=== PATIENT | male | born 1950 | race Two or more races ===

== ENCOUNTER 2024-07-18 21:36 | Inpatient (IN) | payer OTHER ==
[~2024-07-18] VITALS: Ht 177.8 cm; Wt 91.7 kg
[~2024-07-18 21:36] MED LIST: AMLO1TAB23 PO; ATOR-507 PO; CLOP75TA70 PO; DIGO0.12 PO; FURO20TA3 PO; ISOS1TAB29 PO; LISI-275 PO; METF-372 PO; METO-289 PO; PANT40TA2 PO; POTA-228 PO; TAMS0.4C39 PO; VERI5TAB PO
[2024-07-18 22:04] LABS: Basophils # (auto) 0.1 10 ^3/uL (0-0.2); Basophils % (auto) 1.4 % (0.0-2.0); Eosinophils # (auto) 0.5 10 ^3/uL (0-0.8); Eosinophils % (auto) 5.3 % (0.0-7.0); Hematocrit 35.2 % (41.0-53.0); Hemoglobin 11.9 g/dL (13.5-17.5); Lymphocytes # (auto) 2.1 10 ^3/uL (0.4-5.4); Lymphocytes % (auto) 22.4 % (10.0-50.0); Mean Corpuscular Hemoglobin 33.3 pg (28.0-32.0); Mean Corpuscular Hgb Conc. 33.7 g/dL (32.0-36.0); Mean Corpuscular Volume 98.8 fL (80.0-100.0); Monocytes # (auto) 0.3 10 ^3/uL (0-1.3); Monocytes % (auto) 3.6 % (0.0-12.0); Neutrophils # (auto) 6.5 10 ^3/uL (1.6-8.6); Neutrophils % (auto) 67.3 % (37.0-80.0); Nucleated Red Blood Cells % 0.1 %; Platelet Count (auto) 174 10^3/uL (140-450); Red Blood Cells 3.56 10^6/uL (4.5-5.90); White Blood Cell 9.6 10^3/uL (4.4-10.8)
[2024-07-18 22:20] LABS: Alanine Aminotransferase 10 U/L (7-40); Albumin 4.4 g/dL (3.2-4.8); Alkaline Phosphatase 67 U/L (46-116); Anion Gap 11 (5-15); Aspartate Aminotransferase 9 U/L (13-40); BUN/Creatinine Ratio 9.2 (10.0-20.0); Blood Urea Nitrogen 22 mg/dL (9-23); Calcium 9.1 mg/dL (8.7-10.4); Carbon Dioxide 20 mmol/L (20-31); Chloride 111 mmol/L (98-107); Glucose 233 mg/dL (74-106); Potassium 4.5 mmol/L (3.5-5.1); Sodium 142 mmol/L (136-145)
[2024-07-18 22:21] LABS: Bilirubin, Total 0.5 mg/dL (0.2-1.0); INR 1.09 (0.9-1.15); Partial Thromboplastin Time 26.8 SEC (24.5-34.5); Prothrombin Time 11.5 sec (9.3-11.8); Total Protein 7.1 g/dL (5.7-8.2)
--- NOTE | 2024-07-18 22:25 | ED.PDOC ---
History of Present Illness HPI Comments 73 y/o F, with a Hx of AICD placement, angiogram, 4xCABG, OK, and 2xPTCA, presents with c/o non-radiating, sternal chest pain, palpitations, shortness of breath, and nausea, today. Patient reports unprovoked and sudden onset of "crushing" pain in his chest in addition to remaining symptoms, while at rest, laying in his bed, this evening, at around 2100. Patients on Hx of 2-3x OK's in the past in addition to having a quadruple-bypass with 4x vessels targeted then. Patient also endorses on having a recent medical clearance following an angiogram performed by his lathmaker for "poor leg circulation." Patient reports no recent stressors, injuries, sick contact, travel, spoiled food, or substance use/exposure. Patient denies having any cough, vomiting, fever, chills, or other associated symptoms or modifiers at this time. Chief Complaint: Chest Pain Time Seen by MD: 21:45 Reviewed Notes: Nurses Notes, Medications, Allergies Information Source: Patient Mode of Arrival: Wheelchair Severity: Moderate Timing: Hours Duration: Since onset Prehospital treatment: None Past Medical History PAST MEDICAL HISTORY: OK Surgical History: CABG (Quadruple bypass), PTCA (2x) Surgical History (Other): AICD placement, angiogram Family History Family History: Unknown Social History Smoker: Non-Smoker Alcohol: Denies ETOH Use Drugs: Denies Drug Use Lives In: Home Constitutional: denies: chills, diaphoresis, fatigue, fever, malaise, sweats, weakness, others EENTM: denies: blurred vision, double vision, ear bleeding, ear discharge, ear drainage, ear pain, ear ringing, eye pain, eye redness, hearing loss, mouth pain, mouth swelling, nasal discharge, nose bleeding, nose congestion, nose pain, photophobia, tearing, throat pain, throat swelling, voice changes, others Respiratory: reports: shortness of breath; denies: cough, hemoptysis, orthopnea, SOB at rest, SOB with excertion, stridor, wheezing, others Cardiovascular: reports: chest pain, palpitations; denies: dizzy spells, diaphoresis, Dyspnea on exertion, edema, irregular heart beat, left arm pain, lightheadedness, PND, syncope, others Gastrointestinal: reports: nausea; denies: abdomen distended, abdominal pain, blood streaked bowels, constipated, diarrhea, dysphagia, difficulty swallowing, hematemesis, melena, poor appetite, poor fluid intake, rectal bleeding, rectal pain, vomiting, others Genitourinary: denies: burning, dysuria, flank pain, frequency, hematuria, incontinence, penile discharge, penile sore, pain, testicle pain, testicle swelling, urgency, others Neurological: denies: dizziness, fainting, headache, left sided numbness, left sided weakness, numbness, paresthesia, pre-existing deficit, right sided numbness, right sided weakness, seizure, speech problems, tingling, tremors, weakness, others Musculoskeletal: denies: back pain, gout, joint pain, joint swelling, muscle pain, muscle stiffness, neck pain, others Integumetry: denies: bruises, change in color, change in hair/nails, dryness, laceration, lesions, lumps, rash, wounds, others Allergic/Immunocompromised: denies: Difficulty Healing, Frequent Infections, Hives, Itching, others Hematologic/Lymphatic: denies: anemia, blood clots, easy bleeding, easy bruising, swollen glands, others Endocrine: denies: excessive hunger, excessive sweating, excessive thirst, excessive urination, flushing, intolerance to cold, intolerance to heat, unexplained weight gain, unexplained weight loss, others Psychiatric: denies: anxiety, bipolar disorder, depression, hopeless, panic disorder, schizophrenia, sleepless, suicidal, others All Other Systems: Reviewed and Negative Physical Exam General Appearance: Moderate Distress, Normal, Severe Distress HEENT: Normal ENT Inspection, Pharynx Normal, TMs Normal Neck: Full Range of Motion, Non-Tender, Normal, Normal Inspection Respiratory: Chest Non-Tender, Lungs Clear, No Accessory Muscle Use, No Respiratory Distress, Normal Breath Sounds Cardiovascular: No Edema, No JVD, No Murmur, No Gallop, Normal Peripheral Pulses, Regular Rate/Rhythm Breast Exam: Deferred Gastrointestinal: No Organomegaly, Non Tender, No Pulsatile Mass, Normal Bowel Sounds, Soft Genitalia: Deferred Pelvic: Deferred Rectal: Deferred Extremities: No calf tenderness, Normal capillary refill, Normal inspection, Normal range of motion, Non-tender, No pedal edema Musculoskeletal : Apperance: Normal Neurologic: Alert, 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 Was a procedure done?: No EKG EKG : Pulse Rate (adult): 116 [place]: Normal Cardiac Rhythm: ST Block: None Hypertrophy: None ST: Normal Differential Dx Considerations may include: OK, ACS, PE, angina, anxiety, musculoskeletal pain, costochondritis, pericarditis, gastritis, gastroenteritis, PNA, viral syndrome X-Ray, Labs, Meds, VS Vital Signs Date Time Temp Pulse Resp B/P (MAP) Pulse Ox O2 Delivery O2 Flow Rate FiO2 07/18/24 23:35 168/89 07/18/24 23:34 92 18 163/84 07/18/24 22:50 161/88 07/18/24 22:50 138 22 131/88 07/18/24 22:45 132 07/18/24 22:25 116 07/18/24 21:41 116 07/18/24 21:40 98.9 115 16 149/80 (103) 91 Lab Test 07/18/24 23:35 07/18/24 21:46 Range/Units Troponin I High Sensitivity 487 *H 56 *H </=54 ng/L White Blood Count 9.6 4.4-10.8 10^3/uL Red Blood Count 3.56 L 4.5-5.90 10^6/uL Hemoglobin 11.9 L 13.5-17.5 g/dL Hematocrit 35.2 L 41.0-53.0 % Mean Corpuscular Volume 98.8 80.0-100.0 fL Mean Corpuscular Hemoglobin 33.3 H 28.0-32.0 pg Mean Corpuscular Hemoglobin Concent 33.7 32.0-36.0 g/dL Red Cell Distribution Width 14.0 11.8-14.3 % Platelet Count 174 140-450 10^3/uL Mean Platelet Volume 8.2 6.9-10.8 fL Neutrophils (%) (Auto) 67.3 37.0-80.0 % Lymphocytes (%) (Auto) 22.4 10.0-50.0 % Monocytes (%) (Auto) 3.6 0.0-12.0 % Eosinophils (%) (Auto) 5.3 0.0-7.0 % Basophils (%) (Auto) 1.4 0.0-2.0 % Neutrophils # (Auto) 6.5 1.6-8.6 10 ^3/uL Lymphocytes # (Auto) 2.1 0.4-5.4 10 ^3/uL Monocytes # (Auto) 0.3 0-1.3 10 ^3/uL Eosinophils # (Auto) 0.5 0-0.8 10 ^3/uL Basophils # (Auto) 0.1 0-0.2 10 ^3/uL Nucleated Red Blood Cells 0.1 % Prothrombin Time 11.5 9.3-11.8 sec Prothrombin Time INR 1.09 0.9-1.15 Activated Partial Thromboplast Time 26.8 24.5-34.5 SEC Sodium Level 142 136-145 mmol/L Potassium Level 4.5 3.5-5.1 mmol/L Chloride Level 111 H 98-107 mmol/L Carbon Dioxide Level 20 20-31 mmol/L Anion Gap 11 5-15 Blood Urea Nitrogen 22 9-23 mg/dL Creatinine 2.39 H 0.700-1.30 mg/dL Glomerular Filtration Rate Calc 28 >90 mL/min BUN/Creatinine Ratio 9.2 L 10.0-20.0 Serum Glucose 233 H 74-106 mg/dL Calcium Level 9.1 8.7-10.4 mg/dL Total Bilirubin 0.5 0.2-1.0 mg/dL Aspartate Amino Transferase (AST) 9 L 13-40 U/L Alanine Aminotransferase (ALT) 10 7-40 U/L Alkaline Phosphatase 67 46-116 U/L B-Type Natriuretic Peptide 1527.20 0-100 pg/mL Total Protein 7.1 5.7-8.2 g/dL Albumin 4.4 3.2-4.8 g/dL Current Medications Medications (Trade) Dose Ordered Sig/Toby Route Start Time Stop Time Status Last Admin Morphine Sulfate 4 mg ONCE ONCE IV 07/18/24 22:30 07/18/24 22:32 DC 07/18/24 22:50 Nitroglycerin (Ntrostat Sublingual) 0.4 mg ONCE ONCE SL 07/18/24 22:30 07/18/24 22:32 DC 07/18/24 22:50 Aspirin (Ecotrin Enteric Coated Tablet) 325 mg ONCE ONCE PO 07/18/24 22:30 07/18/24 22:32 DC 07/18/24 22:50 [place] [address] Ph: [phone] DIAGNOSTIC IMAGING Diagnostic Imaging Report : [id number] Signed PATIENT: ANGELIKA MCFARLANE ACCT: [id number] UNIT: [id number] : 1950 LOC: ER ROOM / BED: / AGE / SEX: 73 / M ADM STATUS: REG ER SERVICE 39 ORDERING PHYSICIAN: ADA CELESTE MD PROCEDURE(s): CXRP - CHEST PORTABLE REASON: CP ORDER NUMBER(s): [id number], ACCESSION NUMBER(s): [id number] CHEST RADIOGRAPH Indication: CP Technique: Single frontal view of the chest was obtained Comparison: None Findings/ IMPRESSION: Left-sided cardiac device with intact leads. Mild cardiomegaly. Bilateral mid to lower lung zone interstitial and alveolar opacities concerning for pulmonary edema with superimposed infection not excluded. No pneumothorax. ATED BY: MADHAV TANNER DO DICTATED DATE/TIME: 07/18/242300 SIGNED BY: MADHAV TANNER DO SIGNED DATE/TIME: 07/18/242300 CC: First EKG and 2nd EKG shows no signs of ischemia. First troponin is 56. Second troponin is 487. Hemoglobin is 12. Creatinine is 2.4. BNP is 1527. The patient was given Lasix for CHF/pulmonary edema. He was also given morphine oxygen nitroglycerin and aspirin for high cardiac risk The patient was placed on Levaquin for possible superior for infection on the chest x-ray. The patient will be admitted to the hospitalist for further evaluation and care. Time of 1ST Reevaluation: 22:15 Reevaluation 1ST: Unchanged Patient Education/Counseling: Diagnosis, Treatment Family Education/Counseling: No Family Present Departure 1 Departure Time of Disposition: 00:13 Impression: Primary Impression: Chest pain Qualified Codes: R07.9 - Chest pain, unspecified Additional Impressions: Non-STEMI (non-ST elevated myocardial infarction) CHF (congestive heart failure) Qualified Codes: I50.9 - Heart failure, unspecified Pulmonary edema Qualified Codes: J81.0 - Acute pulmonary edema Acute kidney injury Pneumonia Qualified Codes: J18.9 - Pneumonia, unspecified organism Disposition: ADMITTED INPATIENT Admit to: Tele Condition: Guarded Critical Care Note Critical Care Time?: Yes (55 min-critical care time only) Stability Stability form required: No Heart Score Heart Score: Heart Score Response (Comments) Value History Highly Suspicious 2 EKG Normal 0 Age >65 2 Risk Factors >3 or Hx ASHD 2 Troponin 1-2 x's Normal limit 1 Total 7 I personally scribed for ADA CELESTE MD ([email or web address]) on 07/18/24 at 22:25. Electronically submitted by Abdoulaye Griffiths ([email or web address]). I personally scribed for ADA CELESTE MD ([email or web address]) on 07/18/24 at 22:29. Electronically submitted by Abdoulaye Griffiths ([email or web address]). ADA CELESTE MD Jul 18, 2024 22:25
[2024-07-18] MEDS: ASPirin-EC 325mg tab PO ONE (22:50)
[2024-07-18] MEDS: MORPHINE SULFATE 4 MG/ML SYR/VIAL IV ONE (22:50)
[2024-07-18] MEDS: NITROGLYCERIN 0.4 MG SL TAB SL ONE (22:50)
--- NOTE | 2024-07-18 23:04 | DVH ---
CHEST RADIOGRAPH Indication: CP Technique: Single frontal view of the chest was obtained Comparison: None Findings/ IMPRESSION: Left-sided cardiac device with intact leads. Mild cardiomegaly. Bilateral mid to lower lung zone in terstitial and alveolar opacities concerning for pulmonary edema with superimposed infection not excl uded. No pneumothorax.
[2024-07-19] VITALS (15 sets, daily range): BP systolic 107–152; BP diastolic 52–81; PULSE 87–118; RESP 18–24; TEMP 98–98.7; O2SAT 93–100
[2024-07-19] MEDS ORDERED: NITROGLYCERIN 0.4 MG SL TAB SL PRN (00:30)
[2024-07-19] MEDS ORDERED: MORPHINE SULFATE INJ 2 MG/ml SYRG IV PRN (00:30)
[2024-07-19] MEDS ORDERED: ONDANSETRON HCL 4 MG/2 ML VIAL IV PRN (00:30)
[2024-07-19] MEDS ORDERED: DOCUSATE SOD 100 MG CAP PO PRN (00:30)
[2024-07-19] MEDS: ATORVASTATIN 20 MG TAB PO ONE (00:43)
[2024-07-19] MEDS: levoFLOXacin 500MG 100 ML IV ONE (00:43)
[2024-07-19] MEDS: FUROSEMIDE 40 MG/4 ML VIAL IV ONE ×2 (00:43→01:44)
[2024-07-19] MEDS ORDERED: HEPARIN DRIP/D5W 100UNITS/ML 250 ML IV SCH (00:45)
[2024-07-19] MEDS: HEPARIN SODIUM (PORCINE) 5000 UNITS/ML 1ML VIAL IV ONE (01:00)
[2024-07-19] MEDS: HEPARIN DRIP/D5W 100UNITS/ML 250 ML IV SCH ×2 (01:01→10:12)
--- NOTE | 2024-07-19 01:04 | DVHHPRES ---
History of Present Illness Resident Creating Document: JOY VALADEZ RESIDENT History of Present Illness Patient is 73 years old male with past medical history of hypertension, diabetes mellitus type 2, chronic kidney disease, hyperlipidemia, CABG x4, PTCA x2 on AICD came with a complaint of chest pain. Patient reports starting having chest pain around 9:00 p.m. last night. Patient reported pain was sudden onset which him up from sleep, on the left side of the chest, stabbing in nature, radiating to the back, aggravated with movement, relieved with pain medicine like nitrogly cerin and morphine. Patient also endorsed some shortness of breath and palpitation like pounding heart associated with chest pain patient reported having nausea but no vomiting. Patient stated that he has been having off and on chest pain for last couple of weeks which easily happens when lying down but it gets better when sitting. But this time patient did not get any better. Patient also reported having leg swelling started 1 day before. Patient also reported having peripheral artery angiogram 1 month before for elevation of peripheral artery disease. Denied any fever, cough, constipation or diarrhea or dysuria, acute joint pain or swelling, dysarthria or change in vision. Initial lab workup revealed EKG no ST or T-wave changes. Elevated serum creatinine 2.39, GFR 28, elevated blood sugar level 233, elevated troponin I 56> 487> 4036, BNP 1527. UDS negative, CXR [id number] cardiac device with intact leads. Mild cardiomegaly. Bilateral mid to lower lung zone interstitial and alveolar opacities concerning for pulmonary edema with superimposed infection not excluded. No pneumothorax. 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 Patient reports chest pain has gotten better 12/01 Cardiovascular- deny acutecough Respiratory- denies cough or wheezing Gastrointestinal- denies any rectal bleeding, nausea or vomiting Musculoskeletal-denies acute joint swelling or tenderness or redness Neurological- denies acute dysarthria, dysphagia, change in vision Psychiatry- denies depression or SI or HI Skin- denies acute rash or purpura Allergies: Coded Allergies: Codeine (Verified Allergy, Intermediate, 07/19/24) Breaks in Hives from medication. Medications Current Medications Medications Dose Ordered Sig/Toby Route Start Time Stop Time Status Last Admin Dose Admin Sodium Chloride 10 ml Q8HR IV 07/19/24 06:00 Ondansetron HCl 4 mg Q4HP PRN IV 07/19/24 00:30 Docusate Sodium 100 mg BIDPRN PRN PO 07/19/24 00:30 Acetaminophen 650 mg Q6HP PRN PO 07/19/24 00:30 Morphine Sulfate 2 mg Q4HPRN PRN IV 07/19/24 00:30 Nitroglycerin 0.4 mg Q5MINP PRN SL 07/19/24 00:30 Morphine Sulfate 2 mg Q30M PRN IV 07/19/24 00:30 Aspirin 81 mg DAILY PO 07/19/24 10:00 Atorvastatin Calcium 80 mg HS PO 07/19/24 22:00 Heparin Sodium/ Dextrose 250 ml @ 10.908 mls/ hr [id number] IV 07/19/24 00:45 UNV Heparin Sodium/ Dextrose 250 ml @ 10 mls/hr Q24H IV 07/19/24 00:45 07/19/24 01:01 10 MLS/HR Exam Vital Signs Vital Signs Date Time Temp Pulse Resp B/P (MAP) Pulse Ox O2 Delivery O2 Flow Rate FiO2 07/19/24 00:43 123/55 07/19/24 00:34 89 07/18/24 23:34 18 07/18/24 21:40 98.9 91 Exam General examination- awake, alert, oriented converse HEENT- PEERLA, no acute nasal discharge Cardiovascular- S1-S2 audible, rate and rhythm regular, no murmur Respiratory- bilateral lung crackles++ Gastrointestinal-nontender, bowel sound+. Nondistended Musculoskeletal-no acute joint swelling or tenderness or redness# Lower extremity- bilateral leg edema+ Neurological- cranial nerves intact, no acute dysarthria or dysphagia Psychiatry- denies depression or SI or HI Skin- no acute rash or purpura Labs/Xrays Labs Test 07/18/24 23:35 07/18/24 21:46 Range/Units Troponin I High Sensitivity 487 *H </=54 ng/L White Blood Count 9.6 4.4-10.8 10^3/uL Red Blood Count 3.56 L 4.5-5.90 10^6/uL Hemoglobin 11.9 L 13.5-17.5 g/dL Hematocrit 35.2 L 41.0-53.0 % Mean Corpuscular Volume 98.8 80.0-100.0 fL Mean Corpuscular Hemoglobin 33.3 H 28.0-32.0 pg Mean Corpuscular Hemoglobin Concent 33.7 32.0-36.0 g/dL Red Cell Distribution Width 14.0 11.8-14.3 % Platelet Count 174 140-450 10^3/uL Mean Platelet Volume 8.2 6.9-10.8 fL Neutrophils (%) (Auto) 67.3 37.0-80.0 % Lymphocytes (%) (Auto) 22.4 10.0-50.0 % Monocytes (%) (Auto) 3.6 0.0-12.0 % Eosinophils (%) (Auto) 5.3 0.0-7.0 % Basophils (%) (Auto) 1.4 0.0-2.0 % Neutrophils # (Auto) 6.5 1.6-8.6 10 ^3/uL Lymphocytes # (Auto) 2.1 0.4-5.4 10 ^3/uL Monocytes # (Auto) 0.3 0-1.3 10 ^3/uL Eosinophils # (Auto) 0.5 0-0.8 10 ^3/uL Basophils # (Auto) 0.1 0-0.2 10 ^3/uL Nucleated Red Blood Cells 0.1 % Prothrombin Time 11.5 9.3-11.8 sec Prothrombin Time INR 1.09 0.9-1.15 Activated Partial Thromboplast Time 26.8 24.5-34.5 SEC Sodium Level 142 136-145 mmol/L Potassium Level 4.5 3.5-5.1 mmol/L Chloride Level 111 H 98-107 mmol/L Carbon Dioxide Level 20 20-31 mmol/L Anion Gap 11 5-15 Blood Urea Nitrogen 22 9-23 mg/dL Creatinine 2.39 H 0.700-1.30 mg/dL Glomerular Filtration Rate Calc 28 >90 mL/min BUN/Creatinine Ratio 9.2 L 10.0-20.0 Serum Glucose 233 H 74-106 mg/dL Calcium Level 9.1 8.7-10.4 mg/dL Total Bilirubin 0.5 0.2-1.0 mg/dL Aspartate Amino Transferase (AST) 9 L 13-40 U/L Alanine Aminotransferase (ALT) 10 7-40 U/L Alkaline Phosphatase 67 46-116 U/L B-Type Natriuretic Peptide 1527.20 0-100 pg/mL Total Protein 7.1 5.7-8.2 g/dL Albumin 4.4 3.2-4.8 g/dL Assessment/Plan Assessment/Plan # acute chest pain likely due to acute coronary syndrome, likely NSTEMI type 1 -EKG no acute ST elevation or T-wave changes -troponin I 487 -BNP 1527 -continue aspirin 81 mg p.o. daily -continue atorvastatin 80 mg p.o. q.h.s. -pending cardiology consult -pending echo 2D RIYA Score-5 # NSTEMI type 1 -EKG no acute ST elevation or T-wave changes -troponin I 487 -BNP 1527 -continue aspirin 81 mg p.o. daily -continue atorvastatin 80 mg p.o. q.h.s. -pending cardiology consult -pending echo 2D- -RIYA Score-5 # acute hypoxic respiratory failure likely due to acute on chronic heart failure --BNP 1527 -pending echo 2D report -continue Lasix 40 mg IV b.i.d. # acute on chronic heart failure -BNP 1527 -pending echo 2D report -continue Lasix 40 mg IV b.i.d. # hypertensive emergency -continue hydralazine 10 mg IV q.6h p.r.n. -IV 40 mg b.i.d. -monitor BP # CKD -avoid dehydration and nephrotoxic drugs # CABG x4, status post PTCA x2, history of HI -continue current management as prescribed # AICD in place -cardiology follow up outpatient # diabetes mellitus type 2 -continue insulin sliding scale # overweight, BMI 28.8 -was counseled about healthy diet, low-fat diet, physical activity Goals of care/advance care planning; FULL CODE; discussed with the patient >15 minutes PUD prophylaxis: Pantoprazole DVT prophylaxis: Heparin Traffic Lieutenant-Dr. Tobias Plan discussed with Dr. Covarrubias, nursing staff, patient Total time spent on patient evaluation, chart review, assessment and plan, discussion discussion >30 minutes Plan discussed with: Patient Plan discussed with: Patient, Other (RN) My Orders Orders - JOY VALADEZ RESIDENT Procedure Category Date Status Time Admit ADMIT 07/19/24 Transmitted 00:19 Code Status CODE 07/19/24 Transmitted 00:19 Sodium Chloride Lock PHA 07/19/24 In Process (Saline Lock Ns) 06:00 Ondansetron Hcl PHA 07/19/24 In Process (Zofran) 00:30 Docusate Sodium PHA 07/19/24 In Process Capsule (Colace 00:30 Acetaminophen Tablet PHA 07/19/24 In Process (Tylenol Tablet) 00:30 Morphine Sulfate PHA 07/19/24 In Process Injection 00:30 Nitroglycerin PHA 07/19/24 In Process Sublingual (Ntrostat 00:30 Morphine Sulfate PHA 07/19/24 In Process Injection 00:30 Oxygen By Nasal RT 07/19/24 Transmitted Cannula 00:19 Stat Ekg For Chest [facility] 07/19/24 In Process Pain 00:19 Notify Of Changes [facility] 07/19/24 In Process From Base 00:19 Packaging Designer For [facility] 07/19/24 In Process 24 Hours 00:19 Emergency Dysrhythmia [facility] 07/19/24 In Process Protocol 00:19 Rhythm Strips Once [facility] 07/19/24 In Process Every Shift 00:19 Aspirin Tablet PHA 07/19/24 In Process 10:00 Atorvastatin (Lipitor) PHA 07/19/24 In Process 22:00 Platelet Monitoring [facility] 07/19/24 In Process 00:32 Heparin Per [facility] 07/19/24 In Process Standardized Proce 00:32 Discontinue All Im [place] 07/19/24 In Process Injections 00:32 PTPTT LAB 07/19/24 Logged 00:32 Complete Blood Count LAB 07/19/24 Logged 00:32 Stat Ekg For Chest [facility] 07/19/24 In Process Pain 00:32 Heparin Drip/D5w PH[facility] 07/19/24 In Process 100units/Ml 00:45 PTPTT LAB 07/19/24 Logged 07:00 * Cardiology Consult CONS 07/19/24 Transmitted 00:59 Date of Service: Jul 19, 2024 Billing Provider: CESAR COVARRUBIAS MD Common Visit Codes: 63987-RNFDQXW INP/OBS CARE (HIGH) Secondary Visit Codes: 46206-MGJFVNOC CARE PLAN 30 MINUTES JOY VALADEZ RESIDENT Jul 19, 2024 01:04 CESAR COVARRUBIAS MD Jul 19, 2024 08:54
[2024-07-19] MEDS ORDERED: hydrALAZINE HCL 20 MG/ML VL IV PRN (01:30)
[2024-07-19 01:31] LABS: Basophils # (auto) 0 10 ^3/uL (0-0.2); Basophils % (auto) 0.5 % (0.0-2.0); Eosinophils # (auto) 0.3 10 ^3/uL (0-0.8); Eosinophils % (auto) 3.4 % (0.0-7.0); Hematocrit 29.7 % (41.0-53.0); Lymphocytes # (auto) 1.4 10 ^3/uL (0.4-5.4); Lymphocytes % (auto) 15.4 % (10.0-50.0); Mean Corpuscular Hgb Conc. 33.5 g/dL (32.0-36.0); Mean Corpuscular Volume 98.5 fL (80.0-100.0); Monocytes # (auto) 0.4 10 ^3/uL (0-1.3); Monocytes % (auto) 4.1 % (0.0-12.0); Neutrophils # (auto) 7.2 10 ^3/uL (1.6-8.6); Neutrophils % (auto) 76.6 % (37.0-80.0); Platelet Count (auto) 146 10^3/uL (140-450); Red Blood Cells 3.02 10^6/uL (4.5-5.90); Red Cell Distribution Width 13.8 % (11.8-14.3); White Blood Cell 9.4 10^3/uL (4.4-10.8)
[2024-07-19 01:46] LABS: INR 1.11 (0.9-1.15); Partial Thromboplastin Time 26.4 SEC (24.5-34.5); Prothrombin Time 11.7 sec (9.3-11.8)
[2024-07-19 01:47] LABS: Urine Bacteria None Seen /hpf (None Seen)
[2024-07-19 01:57] LABS: Urine Blood TRACE /uL (Negative); Urine Clarity Clear (Clear); Urine Color Light-Yellow (Yellow); Urine Protein, UAD 2+ (Negative); Urine Specific Gravity 1.011 (1.001-1.035); Urine Urobilinogen Normal (Negative); Urine WBC <1 /hpf (0 - 3)
[2024-07-19] MEDS: hydrALAZINE HCL 20 MG/ML VL IV ONE (02:00)
[2024-07-19 02:07] LABS: Amphetamine Screen, Urine Neg (NEGATIVE); Barbiturate Scree,Urine Neg (NEGATIVE)
[2024-07-19 02:08] LABS: Benzodiazephine Screen, Urine Neg (NEGATIVE); Cannabinoid Screen, Urine Neg (NEGATIVE); Cocaine Screen, Urine Neg (NEGATIVE); Opiate Scree,Urine Neg (NEGATIVE); Phencyclidine Screen, Urine Neg (NEGATIVE)
[2024-07-19 06:15] LABS: Alanine Aminotransferase 11 U/L (7-40); Albumin 4.1 g/dL (3.2-4.8); Alkaline Phosphatase 58 U/L (46-116); Anion Gap 13 (5-15); Aspartate Aminotransferase 25 U/L (13-40); BUN/Creatinine Ratio 10.9 (10.0-20.0); Bilirubin, Total 0.7 mg/dL (0.2-1.0); Blood Urea Nitrogen 26 mg/dL (9-23); Calcium 8.6 mg/dL (8.7-10.4); Carbon Dioxide 19 mmol/L (20-31); Chloride 112 mmol/L (98-107); Glucose 181 mg/dL (74-106); Potassium 4.5 mmol/L (3.5-5.1); Sodium 144 mmol/L (136-145); Total Protein 5.9 g/dL (5.7-8.2)
[2024-07-19] MEDS: SODIUM CHLOR 0.9% PF (SALINE LOCK) 10ML VIAL/SYR IV SCH (06:15)
--- NOTE | 2024-07-19 06:20 | ECG ---
[facility] Test Date: 2024-07-18 Test Time: 22:45:50 Pat Name: ANGELIKA MCFARALNE Department: ED Room: 0298T A Gender: M Line Appliance Assembler: ANNA : 1950 Requested By: ADA CELESTE Order Number: [id number] Reading MD: Herbert Reyes Measurements Intervals [place] Rate: 132 P: 21 NV: 138 QRS: -63 QRSD: 130 T: 141 QT: 298 QTc: 442 Interpretive Statements Sinus tachycardia LAE, consider biatrial enlargement LVH with IVCD, LAD and secondary repol abnrm Electronically Signed On 07-19-2024 8:28:28 PST by Herbert Reyes Please click the below link to view image of tracing.
--- NOTE | 2024-07-19 06:21 | ECG ---
[facility] Test Date: 2024-07-19 Test Time: 00:34:12 Pat Name: ANGELIKA MCFARLANE Department: ED Room: 0298T A Gender: M Manager Market Research: ANNA : 1950 Requested By: ADA CELESTE Order Number: [id number] Reading MD: Herbert Reyes Measurements Intervals [place] Rate: 89 P: 59 [place]: 174 QRS: -64 QRSD: 114 T: 112 QT: 359 QTc: 437 Interpretive Statements Sinus rhythm Probable left atrial enlargement Left anterior fascicular block Low voltage, precordial leads Consider anterior infarct Repol abnrm suggests ischemia, anterolateral ST elevation, consider inferior injury Electronically Signed On 07-19-2024 8:28:52 PST by Herbert Reyes Please click the below link to view image of tracing.
[2024-07-19 09:20] LABS: INR 1.12 (0.9-1.15); Partial Thromboplastin Time 32.5 SEC (24.5-34.5); Prothrombin Time 11.8 sec (9.3-11.8)
[2024-07-19] MEDS: FUROSEMIDE 40 MG/4 ML VIAL IV SCH (09:28)
[2024-07-19] MEDS: ASPirin 81 mg TAB PO SCH (09:49)
[2024-07-19] MEDS: HEPARIN SODIUM (PORCINE) 5000 UNITS/ML 1ML VIAL IV STA (10:06)
[2024-07-19] MEDS: MAGNESIUM SULFATE 1GM/100ML 100 ML IV SCH (10:20)
[2024-07-19] MEDS ORDERED: METO-289 PO ×2 (12:50)
[2024-07-19] MEDS ORDERED: ATOR40TA52 PO (12:50)
--- NOTE | 2024-07-19 13:35 | DVHPN2 ---
Progress Note - Dictate Date Seen: Jul 19, 2024 Medical Necessity Reason Pt with a Central, PICC or Fol: No Subjective PT WITH RECURRENT CP ISCHEMIC CM NOT A CANDIDATE FOR REVASCULARIZATION SX OF SOB PMH: ORGANIC HD HFrEF ACUTE CAD S/P CABG S/P AICD ELEVATED BNP DIABETES NEUROPATHY VASCULOPATHY NEPHROPATHY CKD STAGE III ECHO EF <25% MILD AV SCLEROSIS MILD MAC LAE vital signs Vital Sign Date Time Temp Pulse Resp B/P (MAP) Pulse Ox O2 Delivery O2 Flow Rate FiO2 07/19/24 09:28 135/78 07/19/24 08:00 18 95 Room Air* 0 21 07/19/24 08:00 118 07/19/24 05:19 98.7 98.7 Total Intake and Output 07/18/24 07/18/24 07/19/24 15:00 23:00 07:00 Intake Total 120 ml Balance 120 ml medications Current Medications Medications Dose Ordered Sig/Toby Route Start Time Stop Time Status Last Admin Dose Admin Sodium Chloride 10 ml Q8HR IV 07/19/24 06:00 07/19/24 06:15 10 ML Ondansetron HCl 4 mg Q4HP PRN IV 07/19/24 00:30 Docusate Sodium 100 mg BIDPRN PRN PO 07/19/24 00:30 Acetaminophen 650 mg Q6HP PRN PO 07/19/24 00:30 Morphine Sulfate 2 mg Q4HPRN PRN IV 07/19/24 00:30 Nitroglycerin 0.4 mg Q5MINP PRN SL 07/19/24 00:30 Morphine Sulfate 2 mg Q30M PRN IV 07/19/24 00:30 Aspirin 81 mg DAILY PO 07/19/24 10:00 07/19/24 09:49 81 MG Atorvastatin Calcium 80 mg HS PO 07/19/24 22:00 Heparin Sodium/ Dextrose 250 ml @ 10.908 mls/ hr [id number] IV 07/19/24 00:45 UNV Furosemide 40 mg DAILY IV 07/19/24 10:00 07/19/24 09:28 40 MG Hydralazine HCl 10 mg Q6HP PRN IV 07/19/24 01:30 Heparin Sodium/ Dextrose 250 ml @ 13 mls/hr [id number] IV 07/19/24 09:52 07/19/24 10:12 13 MLS/HR laboratory and microbiology Laboratory Tests 07/19/24 03:40 07/19/24 00:43 Test 07/19/24 03:40 Range/Units Serum Glucose 181 H 74-106 mg/dL Problem List NSTEMI RECURRENT CP ISCHEMIC CM NOT A CANDIDATE FOR REVASCULARIZATION SX OF SOB PMH: ORGANIC HD HFrEF ACUTE CAD S/P CABG S/P AICD ELEVATED BNP BIV AICD DIABETES NEUROPATHY VASCULOPATHY NEPHROPATHY CKD STAGE III ECHO EF <25% MILD AV SCLEROSIS MILD MAC LAE Assessment/Plan [facility] 01/14 S/P CABG X3 LAD OCCLUDED VANG TO LAD OCCLUDED CXM OCCLUDED SVG TO OM PATENT RCA OCCLUDED SVG TO PDA OCCLUDED WILL PROCEED WITH ANGIO BUT LIKELIHOOD OF ANT TARGETS FOR REVASCULARIZATION IS UNLIKELY Plan discussed with: Patient Critical Care Time(min): 35 KIKE LUNA MD Jul 19, 2024 13:35
[2024-07-19] MEDS: IOHEXOL 350 MG/ML 100ML IJ ONE (13:36)
[2024-07-19] MEDS: HEPARIN IN NS 1000Units/500mL 1,500 ML ONE (13:37)
[2024-07-19] MEDS: ANGIOMAX 250 MG VIAL IV ONE (13:39)
[2024-07-19] MEDS: MIDAZOLAM HCL 2MG/2ML 2ml VIAL (1mg/ml) ONE (13:40)
[2024-07-19] MEDS: SODIUM CHL 0.9% 50 ML ONE (13:40)
[2024-07-19] MEDS: fentaNYL CITRATE 100 MCG/2 ML VL ONE (13:40)
[2024-07-19] MEDS: LIDOCAINE 2%HCL (LOCAL ANESTH.) INJ 20ML MDV ONE (13:40)
[2024-07-19] MEDS: IODIXANOL 320MG/ML 100ML BTL IV ONE (14:50)
[2024-07-19] MEDS: CLOPIDOGREL BISULFATE 75 MG TAB ONE (15:19)
--- NOTE | 2024-07-19 16:05 | DVHOP ---
DATE OF SURGERY: 07/19/2024 PROCEDURES PERFORMED: * Selective left and right coronary angiography. * Angiography of the VANG. * Angiography of subclavian. * Angiography of the saphenous vein graft to the PDA. Angiography of the saphenous vein graft to the OM. * Angiography of the saphenous vein graft to the diagonal. * Angioplasty with stent placement of the ostium of the left main with a 3.5 x 18 mm Redd [place] stent. * Thrombectomy/shockwave treatment of the ostium of the left main. * Conscious sedation. INDICATIONS: The patient with history of congestive heart failure, ischemic cardiomyopathy, status post Bi-V AICD implantation, history of coronary artery bypass grafting, now presents with signs and complex of subendocardial FL. The patient had an angiogram done several months ago. It showed the patient to have VANG to the LAD was occluded. Saphenous vein graft to the diagonal was occluded. Saphenous vein graft to the OM was patent, but was showing severe degenerative changes with significant amount of thrombus throughout the degenerating graft, this graft is high likelihood for occlusion acutely. The patient with ischemic cardiomyopathy. RCA was a nondominant vessel and because of the above presentation, it is felt that the patient should undergo revascularization since the patient is having ischemic changes. DESCRIPTION OF PROCEDURE: The 6-Swedish diagnostic system was exchanged for a 6-Swedish interventional system. Using an XB 3.5 guide catheter, the left main supplying the circumflex/obtuse marginal was then cannulated. It was then predilated using a shockwave and thrombectomy catheter with a 3.0 x 15 x 12 mm catheter. Following the dilatation, a 3.5 x 18 mm Resolute Redd stent was deployed across the ostium of the left main, supplying the circumflex artery. There were no complications. The patient tolerated the procedure well. RESULTS: * Left main and ostial 95% narrowing, It was supplying the circumflex [place]. * Left anterior descending artery was occluded. * Left internal mammary artery to the left anterior descending was occluded. * Saphenous vein graft to the diagonal was occluded. * Saphenous vein graft to the OM/circumflex was patent. It was giving collateral circulation to the left anterior descending as well as the posterior descending artery territory. * Right coronary artery was occluded. * Saphenous vein graft to the posterior descending artery was occluded. The patient; however, had a severely degenerated saphenous vein graft to the obtuse marginal and this was shedding thrombus and clots into the circulation, causing him to have ongoing chest pain and elevated troponin. At this time, we elected to open up the [place] left main that was supplying the obtuse marginal and circumflex artery. He had a 99% narrowing, status post thrombectomy with angioplasty with stent placement with a 3.5 x 18 mm [place] Resolute stent, now with less than 10% residual stenosis. With competitive flow through the [place] vessel, the circumflex and saphenous vein grafts more than likely will occlude but the patient will no longer have any issues of embolic event taking place. He will remain symptom free and not only that I think forward flow from the circumflex territory will be better suited for collateral flow as well. We will continue to follow the patient. Jatinder Baltazar MD SA/DERICK TID: [id number] RECEIPT: [id number]
[2024-07-19 18:19] LABS: INR 1.18 (0.9-1.15); Partial Thromboplastin Time 44.6 SEC (24.5-34.5); Prothrombin Time 12.4 sec (9.3-11.8)
--- NOTE | 2024-07-19 18:39 | ECG ---
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
[2024-07-19] MEDS: ATORVASTATIN 20 MG TAB PO SCH (21:36)
[2024-07-19] MEDS: MORPHINE SULFATE INJ 2 MG/ml SYRG IV PRN (21:36)
[2024-07-20] VITALS (8 sets, daily range): BP systolic 129–159; BP diastolic 68–79; PULSE 54–103; RESP 17–21; TEMP 97.8–98.6; O2SAT 90–99
[2024-07-20 05:57] LABS: Chloride 105 mmol/L (98-107); Potassium 4.6 mmol/L (3.5-5.1); Sodium 140 mmol/L (136-145)
[2024-07-20 05:58] LABS: Anion Gap 11 (5-15); Calcium 9.3 mg/dL (8.7-10.4); Carbon Dioxide 24 mmol/L (20-31)
[2024-07-20 06:03] LABS: BUN/Creatinine Ratio 10.1 (10.0-20.0); Basophils # (auto) 0.1 10 ^3/uL (0-0.2); Blood Urea Nitrogen 28 mg/dL (9-23); Eosinophils # (auto) 0.4 10 ^3/uL (0-0.8); Glucose 182 mg/dL (74-106); Lymphocytes # (auto) 1.4 10 ^3/uL (0.4-5.4); Monocytes # (auto) 0.4 10 ^3/uL (0-1.3); Nucleated Red Blood Cells % 0.1 %
[2024-07-20 06:05] LABS: Basophils % (auto) 0.9 % (0.0-2.0); Eosinophils % (auto) 5.5 % (0.0-7.0); Hematocrit 30.5 % (41.0-53.0); Hemoglobin 10.5 g/dL (13.5-17.5); Lymphocytes % (auto) 18.6 % (10.0-50.0); Mean Corpuscular Hemoglobin 33.7 pg (28.0-32.0); Mean Corpuscular Hgb Conc. 34.6 g/dL (32.0-36.0); Mean Corpuscular Volume 97.3 fL (80.0-100.0); Monocytes % (auto) 5.2 % (0.0-12.0); Neutrophils # (auto) 5.2 10 ^3/uL (1.6-8.6); Neutrophils % (auto) 69.8 % (37.0-80.0); Platelet Count (auto) 156 10^3/uL (140-450); Red Blood Cells 3.13 10^6/uL (4.5-5.90); Red Cell Distribution Width 13.8 % (11.8-14.3); White Blood Cell 7.4 10^3/uL (4.4-10.8)
[2024-07-20] MEDS: CLOPIDOGREL BISULFATE 75 MG TAB PO SCH (10:09)
[2024-07-20] MEDS: ACETAMINOPHEN 325 MG TAB PO PRN (10:50)
--- NOTE | 2024-07-20 12:54 | CONS ---
Pharmacy Clinical Information: CQM HF Report. Patient does not qualify for MRA or SGLT2 based on renal func tion; takes lisinopril at home however due to BRIA, might be beneficial to put on hold until BRIA is resolved; takes metoprolol succinate at home, consider restarting EBBB during hospitalization. CHICHO YIP PHARMACIST Jul 20, 2024 12:54
--- NOTE | 2024-07-20 13:05 | DVHPN2 ---
Progress Note - Dictate Date Seen: Jul 20, 2024 Medical Necessity Reason Pt with a Central, PICC or Fol: No Subjective PT WITH RECURRENT CP ISCHEMIC CM NOT A CANDIDATE FOR REVASCULARIZATION SX OF SOB PMH: ORGANIC HD HFrEF ACUTE CAD S/P CABG S/P AICD ELEVATED BNP DIABETES NEUROPATHY VASCULOPATHY NEPHROPATHY CKD STAGE III ECHO EF <25% MILD AV SCLEROSIS MILD MAC LAE vital signs Vital Sign Date Time Temp Pulse Resp B/P (MAP) Pulse Ox O2 Delivery O2 Flow Rate FiO2 07/20/24 12:46 97.8 94 17 142/72 (95) 94 97.8 07/20/24 08:00 Room Air* 3 N/A Nasal Cannula* Total Intake and Output 07/19/24 07/19/24 07/20/24 15:00 23:00 07:00 Intake Total 580 ml 600 ml Output Total 310 ml 600 ml Balance 270 ml 0 ml medications Current Medications Medications Dose Ordered Sig/Toby Route Start Time Stop Time Status Last Admin Dose Admin Sodium Chloride 10 ml Q8HR IV 07/19/24 06:00 07/20/24 05:08 10 ML Ondansetron HCl 4 mg Q4HP PRN IV 07/19/24 00:30 Docusate Sodium 100 mg BIDPRN PRN PO 07/19/24 00:30 Acetaminophen 650 mg Q6HP PRN PO 07/19/24 00:30 07/20/24 10:50 650 MG Morphine Sulfate 2 mg Q4HPRN PRN IV 07/19/24 00:30 07/20/24 05:58 2 MG Nitroglycerin 0.4 mg Q5MINP PRN SL 07/19/24 00:30 Morphine Sulfate 2 mg Q30M PRN IV 07/19/24 00:30 Aspirin 81 mg DAILY PO 07/19/24 10:00 07/20/24 10:10 81 MG Atorvastatin Calcium 80 mg HS PO 07/19/24 22:00 07/19/24 21:36 80 MG Heparin Sodium/ Dextrose 250 ml @ 10.908 mls/ hr [id number] IV 07/19/24 00:45 UNV Furosemide 40 mg DAILY IV 07/19/24 10:00 07/20/24 10:09 40 MG Hydralazine HCl 10 mg Q6HP PRN IV 07/19/24 01:30 Clopidogrel Bisulfate 75 mg DAILY PO 07/20/24 10:00 07/20/24 10:09 75 MG laboratory and microbiology Laboratory Tests 07/20/24 05:20 Test 07/20/24 05:20 Range/Units Serum Glucose 182 H 74-106 mg/dL Problem List NSTEMI RECURRENT CP ISCHEMIC CM NOT A CANDIDATE FOR REVASCULARIZATION SX OF SOB PMH: ORGANIC HD HFrEF ACUTE CAD S/P CABG S/P AICD ELEVATED BNP BIV AICD DIABETES NEUROPATHY VASCULOPATHY NEPHROPATHY CKD STAGE III ECHO EF <25% MILD AV SCLEROSIS MILD MAC LAE Assessment/Plan ACS PROTOCOL [facility] 01/14 S/P CABG X3 LAD OCCLUDED VANG TO LAD OCCLUDED CXM OCCLUDED SVG TO OM PATENT RCA OCCLUDED SVG TO PDA OCCLUDED WILL PROCEED WITH ANGIO BUT LIKELIHOOD OF ANT TARGETS FOR REVASCULARIZATION IS UNLIKELY S/P PTCA STENT LEFT MAIN/ CX DEGENERATIVE SVG GRAFT TO OM1 CAUSING EMBOLISM DISTALLY Plan discussed with: Patient KIKE LUNA MD Jul 20, 2024 13:04
--- NOTE | 2024-07-20 13:11 | DVHPN2 ---
Subjective No more chest pain but still continue having palpitations and SOB upon exertion; complain of discomfort and right inguinal area Reviewed: Care Plan, H&P, Labs, Medications, Previous Orders, Radiology, Other (Consultation) Changes from previous H/P or p: Changes Objective Vitals Vital Signs Date Time Temp Pulse Resp B/P (MAP) Pulse Ox O2 Delivery O2 Flow Rate FiO2 07/20/24 12:46 97.8 94 17 142/72 (95) 94 97.8 07/20/24 08:00 Room Air* 3 N/A Nasal Cannula* Intake/Output Intake and Output 07/20/24 07:00 Intake Total 1180 ml Output Total 910 ml Balance 270 ml Intake Oral 1180 ml Output Urine Total 910 ml Exam Nursing staff as a robotics software engineer General Appearance: Alert, Oriented X3, Cooperative, No acute distress HEENT: Atraumatic Lungs: Clear to auscultation, Normal air movement Chest/Breasts: Other (AICD in place) Cardiovascular: Regular rate, Normal S1, Normal S2 Extremities: Other (Right inguinal hernia cardiac catheterization site with a clean dressing with no swelling/bleeding) Neuro: Normal speech, Cranial nerves 3-12 NL Psych/Mental Status: Mental status NL, Mood NL Medications Current Medications Medications Dose Ordered Sig/Toby Route Start Time Stop Time Status Last Admin Dose Admin Sodium Chloride 10 ml Q8HR IV 07/19/24 06:00 07/20/24 05:08 10 ML Ondansetron HCl 4 mg Q4HP PRN IV 07/19/24 00:30 Docusate Sodium 100 mg BIDPRN PRN PO 07/19/24 00:30 Acetaminophen 650 mg Q6HP PRN PO 07/19/24 00:30 07/20/24 10:50 650 MG Morphine Sulfate 2 mg Q4HPRN PRN IV 07/19/24 00:30 07/20/24 05:58 2 MG Nitroglycerin 0.4 mg Q5MINP PRN SL 07/19/24 00:30 Morphine Sulfate 2 mg Q30M PRN IV 07/19/24 00:30 Aspirin 81 mg DAILY PO 07/19/24 10:00 07/20/24 10:10 81 MG Atorvastatin Calcium 80 mg HS PO 07/19/24 22:00 07/19/24 21:36 80 MG Heparin Sodium/ Dextrose 250 ml @ 10.908 mls/ hr [id number] IV 07/19/24 00:45 UNV Furosemide 40 mg DAILY IV 07/19/24 10:00 07/20/24 10:09 40 MG Hydralazine HCl 10 mg Q6HP PRN IV 07/19/24 01:30 Clopidogrel Bisulfate 75 mg DAILY PO 07/20/24 10:00 07/20/24 10:09 75 MG Laboratory Results Laboratory Tests 07/20/24 05:20 Chemistry Test 07/20/24 05:20 Calcium Level 9.3 mg/dL (8.7-10.4) Coagulation Test 07/19/24 17:40 Prothrombin Time 12.4 sec (9.3-11.8) H Prothrombin Time INR 1.18 (0.9-1.15) H Activated Partial Thromboplast Time 44.6 SEC (24.5-34.5) H Cardiac Markers Test 07/20/24 05:20 B-Type Natriuretic Peptide 638.98 pg/mL (0-100) Urinalysis Test 07/19/24 01:30 Urine Color Light-yellow (Yellow) Urine Clarity Clear (Clear) Urine pH 6.0 (5.0-9.0) Urine Specific [place] 1.011 (1.001-1.035) Urine Protein 2+ (Negative) H Urine Ketones Negative (Negative) Urine Blood Trace /uL (Negative) H Urine Nitrite Negative (Negative) Urine Bilirubin Negative (Negative) Urine Urobilinogen Normal mg/dL (Negative) Urine Leukocyte Esterase Negative /uL (Negative) Urine RBC <1 /hpf (0 - 3) Urine WBC <1 /hpf (0 - 3) Urine Squamous Epithelial Cells None seen /hpf (<5) Urine Bacteria None seen /hpf (None Seen) Urine Glucose 2+ mg/dL (Normal) H Labs and/or images reviewed: Labs reviewed by me, Image(s) reviewed by me Assessment/Plan Assessment/Plan A 73-year-old male patient; multiple comorbidities; who presented to the emergency department with chest pain. #Chest pain due to ACS status post selective left and right coronary angiography, angiography of the VANG, angiography of subclavian, angiography of the saphenous vein graft to the PDA, angiography of the saphenous vein graft to the OM, angiography of the saphenous vein graft to the diagonal, angioplasty with stent placement of the ostium of the left main with a 3.5x 18 mm Redd [place] stent, and thrombectomy/shockwave treatment of the ostium of the left main on July 19, [address] Tobias; continue telemetry; continue aspirin, clopidogrel, and statin; continue monitoring #CAD status post CABG and multiple stenting; management as above; cardiology is following; continue monitoring #Acute on chronic diastolic and systolic heart failure; continue IV diuresis; strict input and output monitoring; cardiology is following; continue monitoring #Acute hypoxic respiratory failure due to pulmonary edema secondary to acute on chronic diastolic and systolic heart failure; continue oxygen therapy as needed; continue monitoring #Hypertensive heart disease with heart failure; continue antihypertensive medications and adjust accordingly; continue monitoring #Status post AICD; cardiology is following; continue monitoring #Discomfort at the site of cardiac catheterization of right inguinal area; examined with robotics software engineer; no swelling/bleeding; clean dressing; continue pain management as indicated; continue monitoring #BRIA on CKD stage IV; s/p IV contrast; can not rule out vasomotor nephropathy; avoid nephrotoxic agents; continue monitoring #Metabolic syndrome with diabetes mellitus type 2, overweight, and dyslipidemia; continue current medical management; continue monitoring #Elevated D-dimer; in the setting of CKD stage IV and ACS; ordered V/Q scan in the setting of CKD stage IV as the patient is having palpitations and SOB upon exertion; also ordered Doppler ultrasound of lower extremity; continue monitoring #Palpitations with tachycardia upon exertion; started on metoprolol by Cardiology; continue monitoring Goals of care discussed for 20 minutes; full code This medical document was created using an electronic medical record system with computerized dictation system. Although this document has been carefully reviewed, there might still be some phonetic and typographical errors. These areas are purely typographical due to imperfections of the software programs, and do not reflect any compromise in the patient's medical care. Plan discussed with: Patient, Spouse, Other (Nurse) Date of Service: Jul 20, 2024 Billing Provider: BITA LIND MD Common Visit Codes: [id number] INP/OBS CARE(HIGH) Secondary Visit Codes: 53985-[id number] CARE PLAN 30 MINUTES (20 minutes) BITA LIND MD Jul 20, 2024 13:11
[2024-07-21] VITALS (8 sets, daily range): BP systolic 116–160; BP diastolic 61–80; PULSE 64–102; RESP 16–18; TEMP 97.7–98.4; O2SAT 93–97
[2024-07-21 07:38] LABS: Basophils # (auto) 0.1 10 ^3/uL (0-0.2); Basophils % (auto) 0.8 % (0.0-2.0); Eosinophils # (auto) 0.4 10 ^3/uL (0-0.8); Eosinophils % (auto) 5.5 % (0.0-7.0); Hematocrit 31.7 % (41.0-53.0); Lymphocytes # (auto) 1.6 10 ^3/uL (0.4-5.4); Lymphocytes % (auto) 19.9 % (10.0-50.0); Mean Corpuscular Hemoglobin 33.7 pg (28.0-32.0); Mean Corpuscular Hgb Conc. 34.6 g/dL (32.0-36.0); Mean Corpuscular Volume 97.3 fL (80.0-100.0); Monocytes # (auto) 0.4 10 ^3/uL (0-1.3); Monocytes % (auto) 5.3 % (0.0-12.0); Neutrophils # (auto) 5.5 10 ^3/uL (1.6-8.6); Neutrophils % (auto) 68.5 % (37.0-80.0); Platelet Count (auto) 158 10^3/uL (140-450); Red Blood Cells 3.26 10^6/uL (4.5-5.90); Red Cell Distribution Width 13.6 % (11.8-14.3)
[2024-07-21 07:50] LABS: Alanine Aminotransferase 33 U/L (7-40); Albumin 4.2 g/dL (3.2-4.8); Alkaline Phosphatase 101 U/L (46-116); Anion Gap 11 (5-15); BUN/Creatinine Ratio 10.2 (10.0-20.0); Calcium 9.5 mg/dL (8.7-10.4); Carbon Dioxide 26 mmol/L (20-31); Chloride 104 mmol/L (98-107); Potassium 4.9 mmol/L (3.5-5.1); Sodium 141 mmol/L (136-145)
[2024-07-21 07:52] LABS: Bilirubin, Total 0.8 mg/dL (0.2-1.0); Total Protein 6.8 g/dL (5.7-8.2)
[2024-07-21 07:58] LABS: Aspartate Aminotransferase 51 U/L (13-40); Blood Urea Nitrogen 29 mg/dL (9-23); Glucose 186 mg/dL (74-106); Magnesium 1.5 mg/dL (1.6-2.6)
--- NOTE | 2024-07-21 08:53 | DVH ---
Bilateral lower extremity venous duplex Clinical History: Elevated D-dimer. Comparison: None Technique: Duplex Doppler evaluation of the deep venous systems of both lower extremities from the common femora l veins to the popliteal veins including color Doppler and spectral/pulsed waveform analysis was perf ormed. Findings: RIGHT SIDE: The common femoral vein demonstrates appropriate compressibility and waveform variability. There is compressibility/patency of the great saphenous vein at the proximal thigh. The femoral vein demonstrates appropriate compressibility and waveform variability. The deep femoral vein demonstrates appropriate compressibility and waveform variability. The popliteal vein demonstrates appropriate compressibility and waveform variability. There is normal compressibility at the tibioperoneal trunk. LEFT SIDE: The common femoral vein demonstrates appropriate compressibility and waveform variability. There is compressibility/patency of the great saphenous vein at the proximal thigh. The femoral vein demonstrates appropriate compressibility and waveform variability. The deep femoral vein demonstrates appropriate compressibility and waveform variability. The popliteal vein demonstrates appropriate compressibility and waveform variability. There is normal compressibility at the tibioperoneal trunk. Impression: No right or left femoropopliteal venous thrombosis.
[2024-07-21] MEDS: METOPROLOL SUCCINATE XL 50 MG TAB PO SCH (10:21)
--- NOTE | 2024-07-21 12:37 | DVHPN2 ---
Subjective Palpitations woke him up this morning; no chest pain but still continue having palpitations and SOB upon exertion; decreasing discomfort and right inguinal area Reviewed: Care Plan, H&P, Labs, Medications, Previous Orders, Radiology, Other (Consultation) Changes from previous H/P or p: Changes Objective Vitals Vital Signs Date Time Temp Pulse Resp B/P (MAP) Pulse Ox O2 Delivery O2 Flow Rate FiO2 07/21/24 10:21 100 120/70 07/21/24 09:00 98.0 18 95 98.0 07/21/24 08:00 Nasal Cannula* 2 28 Intake/Output Intake and Output 07/21/24 07:00 Intake Total 1615 ml Balance 1615 ml Intake Oral 1615 ml # Voids 8 # Bowel Movements 2 Exam Nursing staff as a aircraft electronics technical officer General Appearance: Alert, Oriented X3, Cooperative, No acute distress HEENT: Atraumatic Lungs: Clear to auscultation, Normal air movement Chest/Breasts: Other (AICD in place) Cardiovascular: Regular rate, Normal S1, Normal S2 Extremities: Other (Right inguinal hernia cardiac catheterization site with a clean dressing with no swelling/bleeding) Neuro: Normal speech, Cranial nerves 3-12 NL Psych/Mental Status: Mental status NL, Mood NL Medications Current Medications Medications Dose Ordered Sig/Toby Route Start Time Stop Time Status Last Admin Dose Admin Sodium Chloride 10 ml Q8HR IV 07/19/24 06:00 07/21/24 06:28 10 ML Ondansetron HCl 4 mg Q4HP PRN IV 07/19/24 00:30 Docusate Sodium 100 mg BIDPRN PRN PO 07/19/24 00:30 Acetaminophen 650 mg Q6HP PRN PO 07/19/24 00:30 07/20/24 10:50 650 MG Morphine Sulfate 2 mg Q4HPRN PRN IV 07/19/24 00:30 07/20/24 05:58 2 MG Nitroglycerin 0.4 mg Q5MINP PRN SL 07/19/24 00:30 Morphine Sulfate 2 mg Q30M PRN IV 07/19/24 00:30 Aspirin 81 mg DAILY PO 07/19/24 10:00 07/21/24 10:21 81 MG Atorvastatin Calcium 80 mg HS PO 07/19/24 22:00 07/20/24 21:06 80 MG Heparin Sodium/ Dextrose 250 ml @ 10.908 mls/ hr [id number] IV 07/19/24 00:45 UNV Furosemide 40 mg DAILY IV 07/19/24 10:00 07/21/24 10:20 40 MG Hydralazine HCl 10 mg Q6HP PRN IV 07/19/24 01:30 Clopidogrel Bisulfate 75 mg DAILY PO 07/20/24 10:00 07/21/24 10:21 75 MG Metoprolol Succinate 50 mg DAILY PO 07/21/24 10:00 07/21/24 10:21 50 MG Laboratory Results Laboratory Tests 07/21/24 06:52 Chemistry Test 07/21/24 06:52 Albumin 4.2 g/dL (3.2-4.8) Calcium Level 9.5 mg/dL (8.7-10.4) Magnesium Level 1.5 mg/dL (1.6-2.6) L Total Protein 6.8 g/dL (5.7-8.2) LFT Test 07/21/24 06:52 Alanine Aminotransferase (ALT) 33 U/L (7-40) Alkaline Phosphatase 101 U/L (46-116) Aspartate Amino Transferase (AST) 51 U/L (13-40) H Total Bilirubin 0.8 mg/dL (0.2-1.0) Urinalysis Test 07/19/24 01:30 Urine Color Light-yellow (Yellow) Urine Clarity Clear (Clear) Urine pH 6.0 (5.0-9.0) Urine Specific [place] 1.011 (1.001-1.035) Urine Protein 2+ (Negative) H Urine Ketones Negative (Negative) Urine Blood Trace /uL (Negative) H Urine Nitrite Negative (Negative) Urine Bilirubin Negative (Negative) Urine Urobilinogen Normal mg/dL (Negative) Urine Leukocyte Esterase Negative /uL (Negative) Urine RBC <1 /hpf (0 - 3) Urine WBC <1 /hpf (0 - 3) Urine Squamous Epithelial Cells None seen /hpf (<5) Urine Bacteria None seen /hpf (None Seen) Urine Glucose 2+ mg/dL (Normal) H Labs and/or images reviewed: Labs reviewed by me, Image(s) reviewed by me Assessment/Plan Assessment/Plan A 73-year-old male patient; multiple comorbidities; who presented to the emergency department with chest pain. #Runs of V-tach causing palpitations; continue metoprolol by Cardiology; pending cardiology evaluation; telemetry; continue monitoring #Chest pain due to ACS status post selective left and right coronary angiography, angiography of the VANG, angiography of subclavian, angiography of the saphenous vein graft to the PDA, angiography of the saphenous vein graft to the OM, angiography of the saphenous vein graft to the diagonal, angioplasty with stent placement of the ostium of the left main with a 3.5x 18 mm Redd [place] stent, and thrombectomy/shockwave treatment of the ostium of the left main on July 19, [address] Tobias; continue telemetry; continue aspirin, clopidogrel, and statin; continue pain management as indicated; continue monitoring #CAD status post CABG and multiple stenting; management as above; cardiology is following; continue monitoring #Acute on chronic diastolic and systolic heart failure; continue IV diuresis; strict input and output monitoring; cardiology is following; continue monitoring #Acute hypoxic respiratory failure due to pulmonary edema secondary to acute on chronic diastolic and systolic heart failure; continue oxygen therapy as needed; continue monitoring #Hypertensive heart disease with heart failure; continue antihypertensive medications and adjust accordingly; continue monitoring #Status post AICD; cardiology is following; continue monitoring #Discomfort at the site of cardiac catheterization of right inguinal area; decreasing; examined with aircraft electronics technical officer; no swelling/bleeding; clean dressing; continue pain management as indicated; continue monitoring #BRIA on CKD stage IV; s/p IV contrast; can not rule out vasomotor nephropathy; avoid nephrotoxic agents; continue monitoring #Hypokalemia and hypomagnesemia due to diuresis; replace electrolytes as needed; continue monitoring #Metabolic syndrome with diabetes mellitus type 2, overweight, and dyslipidemia; continue current medical management; continue monitoring #Elevated D-dimer; in the setting of CKD stage IV and ACS; ordered V/Q scan in the setting of CKD stage IV as the patient is having palpitations and SOB upon exertion; Doppler ultrasound of lower extremities showed no DVTs; continue monitoring This medical document was created using an electronic medical record system with computerized dictation system. Although this document has been carefully reviewed, there might still be some phonetic and typographical errors. These areas are purely typographical due to imperfections of the software programs, and do not reflect any compromise in the patient's medical care. Plan discussed with: Patient, Spouse, Other (Nurse) My Orders Orders - BITA LIND MD Procedure Category Date Status Time Nm Vq Scan NM 07/21/24 Logged 07:17 Bilat Lower Dvt US 07/21/24 Resulted 07:17 Date of Service: Jul 21, 2024 Billing Provider: BITA LIND MD Common Visit Codes: [id number] INP/OBS CARE(HIGH) BITA LIND MD Jul 21, 2024 12:37
[2024-07-21] MEDS: MAGNESIUM SULFATE 1GM/100ML 100 ML IV ONE (17:39)
[2024-07-22] VITALS (8 sets, daily range): BP systolic 117–151; BP diastolic 71–84; PULSE 82–94; RESP 17–20; TEMP 97.7–98.2; O2SAT 92–98
[2024-07-22 07:15] LABS: Chloride 104 mmol/L (98-107); Potassium 5.1 mmol/L (3.5-5.1); Sodium 139 mmol/L (136-145)
[2024-07-22 07:16] LABS: Anion Gap 11 (5-15); Calcium 9.6 mg/dL (8.7-10.4); Carbon Dioxide 24 mmol/L (20-31)
[2024-07-22 07:22] LABS: Magnesium 1.7 mg/dL (1.6-2.6)
[2024-07-22 07:30] LABS: Blood Urea Nitrogen 33 mg/dL (9-23); Glucose 177 mg/dL (74-106)
--- NOTE | 2024-07-22 12:15 | DVHPN2 ---
Subjective No chest pain with decreasing palpitations and SOB upon exertion; increasing discomfort and right inguinal area Reviewed: Care Plan, H&P, Labs, Medications, Previous Orders, Radiology, Other (Consultation) Changes from previous H/P or p: Changes Objective Vitals Vital Signs Date Time Temp Pulse Resp B/P (MAP) Pulse Ox O2 Delivery O2 Flow Rate FiO2 07/22/24 10:26 91 151/76 07/22/24 09:00 97.8 20 96 97.8 07/22/24 08:00 Nasal Cannula* 2 28 Intake/Output Intake and Output 07/22/24 07:00 Intake Total 1560 ml Output Total 1 ml Balance 1559 ml Intake Oral 1560 ml Urine/Stool Mix 1 ml # Voids 10 # Bowel Movements 1 Exam Nursing staff as a angle shear operator General Appearance: Alert, Oriented X3, Cooperative, No acute distress HEENT: Atraumatic Lungs: Clear to auscultation, Normal air movement Chest/Breasts: Other (AICD in place) Cardiovascular: Regular rate, Normal S1, Normal S2 Extremities: Other (Right inguinal hernia cardiac catheterization site with a clean dressing with no swelling/bleeding) Neuro: Normal speech, Cranial nerves 3-12 NL Psych/Mental Status: Mental status NL, Mood NL Medications Current Medications Medications Dose Ordered Sig/Toby Route Start Time Stop Time Status Last Admin Dose Admin Sodium Chloride 10 ml Q8HR IV 07/19/24 06:00 07/21/24 21:08 10 ML Ondansetron HCl 4 mg Q4HP PRN IV 07/19/24 00:30 Docusate Sodium 100 mg BIDPRN PRN PO 07/19/24 00:30 Acetaminophen 650 mg Q6HP PRN PO 07/19/24 00:30 07/20/24 10:50 650 MG Morphine Sulfate 2 mg Q4HPRN PRN IV 07/19/24 00:30 07/20/24 05:58 2 MG Nitroglycerin 0.4 mg Q5MINP PRN SL 07/19/24 00:30 Morphine Sulfate 2 mg Q30M PRN IV 07/19/24 00:30 Aspirin 81 mg DAILY PO 07/19/24 10:00 07/22/24 10:26 81 MG Atorvastatin Calcium 80 mg HS PO 07/19/24 22:00 07/21/24 21:06 80 MG Heparin Sodium/ Dextrose 250 ml @ 10.908 mls/ hr [id number] IV 07/19/24 00:45 UNV Furosemide 40 mg DAILY IV 07/19/24 10:00 07/22/24 10:25 40 MG Hydralazine HCl 10 mg Q6HP PRN IV 07/19/24 01:30 Clopidogrel Bisulfate 75 mg DAILY PO 07/20/24 10:00 07/22/24 10:25 75 MG Metoprolol Succinate 100 mg DAILY PO 07/23/24 10:00 Laboratory Results Laboratory Tests 07/21/24 06:52 07/22/24 06:30 Chemistry Test 07/22/24 06:30 Calcium Level 9.6 mg/dL (8.7-10.4) Magnesium Level 1.7 mg/dL (1.6-2.6) Urinalysis Test 07/19/24 01:30 Urine Color Light-yellow (Yellow) Urine Clarity Clear (Clear) Urine pH 6.0 (5.0-9.0) Urine Specific [place] 1.011 (1.001-1.035) Urine Protein 2+ (Negative) H Urine Ketones Negative (Negative) Urine Blood Trace /uL (Negative) H Urine Nitrite Negative (Negative) Urine Bilirubin Negative (Negative) Urine Urobilinogen Normal mg/dL (Negative) Urine Leukocyte Esterase Negative /uL (Negative) Urine RBC <1 /hpf (0 - 3) Urine WBC <1 /hpf (0 - 3) Urine Squamous Epithelial Cells None seen /hpf (<5) Urine Bacteria None seen /hpf (None Seen) Urine Glucose 2+ mg/dL (Normal) H Labs and/or images reviewed: Labs reviewed by me, Image(s) reviewed by me Assessment/Plan Assessment/Plan A 73-year-old male patient; multiple comorbidities; who presented to the emergency department with chest pain. #Discomfort at the site of cardiac catheterization of right inguinal area; increasing; examined with angle shear operator; no swelling/bleeding; clean dressing; continue pain management as indicated; ordered ultrasound and x-ray that showed surgical clips; Dr. Tobias was informed and will discuss with the patient; will apply warm compress to the right greater saphenous vein area; continue monitoring #Runs of V-tach causing palpitations; increased metoprolol succinate to 100 mg daily; telemetry; continue monitoring #Chest pain due to ACS status post selective left and right coronary angiography, angiography of the VANG, angiography of subclavian, angiography of the saphenous vein graft to the PDA, angiography of the saphenous vein graft to the OM, angiography of the saphenous vein graft to the diagonal, angioplasty with stent placement of the ostium of the left main with a 3.5x 18 mm [place] stent, and thrombectomy/shockwave treatment of the ostium of the left main on July 19, [address] Tobias; continue telemetry; continue aspirin, clopidogrel, and statin; continue pain management as indicated; continue monitoring #CAD status post CABG and multiple stenting; management as above; cardiology is following; continue monitoring #Acute on chronic diastolic and systolic heart failure; continue IV diuresis; strict input and output monitoring; cardiology is following; continue monitoring #Acute hypoxic respiratory failure due to pulmonary edema secondary to acute on chronic diastolic and systolic heart failure; continue oxygen therapy as needed; continue monitoring #Hypertensive heart disease with heart failure; continue antihypertensive medications and adjust accordingly; continue monitoring #Status post AICD; cardiology is following; continue monitoring #BRIA on CKD stage IV; s/p IV contrast; can not rule out vasomotor nephropathy; avoid nephrotoxic agents; continue monitoring #Hypokalemia and hypomagnesemia due to diuresis; replace electrolytes as needed; continue monitoring #Metabolic syndrome with diabetes mellitus type 2, overweight, and dyslipidemia; continue current medical management; continue monitoring #Elevated D-dimer; in the setting of CKD stage IV and ACS; ordered V/Q scan in the setting of CKD stage IV as the patient is having palpitations and SOB upon exertion; Doppler ultrasound of lower extremities showed no DVTs; continue monitoring July 22, 2024 imaging studies results: Right groin ultrasound: 1. Linear echogenic structure with posterior shadowing at the right groin measuring up to 1.3 cm. Finding is suspicious for a foreign body such as a needle fragment. Recommend correlation with radiographs. 2. Superficial thrombophlebitis in the right greater saphenous vein. 3. No significant hematoma. Right hip x-rays: Surgical clips are noted adjacent to the right ischial tuberosity with additional surgical clips of the right medial upper thigh soft tissues. 11 mm linear density overlying the right pubic bone with superimposed moderate amount of fecal material within the rectum No additional foreign bodies are visualized. This medical document was created using an electronic medical record system with computerized dictation system. Although this document has been carefully reviewed, there might still be some phonetic and typographical errors. These areas are purely typographical due to imperfections of the software programs, and do not reflect any compromise in the patient's medical care. Plan discussed with: Patient, Spouse, Other (Nurse) My Orders Orders - BITA LIND MD Procedure Category Date Status Time Metoprolol Xl PHA 07/23/24 In Process Succinate (Toprol Xl) 10:00 Right Lower Extremity US 07/22/24 Taken Ultrasou 11:12 Date of Service: Jul 22, 2024 Billing Provider: BITA LIND MD Common Visit Codes: [id number] INP/OBS CARE(HIGH) BITA LIND MD Jul 22, 2024 12:15
--- NOTE | 2024-07-22 12:37 | DVH ---
Exam: US RIGHT LOWER EXTREMITY ULTRASOU Clinical History: RIGHT GROIN, R/O HEMATOMA Comparison: None Technique: Targeted sonographic evaluation of the soft tissues of the right groin was obtained utilizing graysc gila and color Doppler imaging. Doppler spectral waveform analysis of the right greater saphenous vein , right common femoral vein, and right superficial femoral vein was performed. Findings/Impression: No evidence of hematoma at the area of interest at the right groin. There is an echogenic linear structure at the right groin that measures 1.3 cm in length and has post erior acoustic shadowing (series 1, image 23). There is only partial compressibility of the right greater saphenous vein and associated echogenic in traluminal density. The visualized common femoral vein and superficial femoral vein appear patent. Benign-appearing right inguinal lymph nodes with intact fatty avery and thin cortices. Impression: 1. Linear echogenic structure with posterior shadowing at the right groin measuring up to 1.3 cm. Fin ding is suspicious for a foreign body such as a needle fragment. Recommend correlation with radiograp hs. 2. Superficial thrombophlebitis in the right greater saphenous vein. 3. No significant hematoma. Critical Result: Foreign body Findings discussed with BITA LIND at 07/22/2024 12:33 PM, and acknowledged receipt and understan ding of the findings.
--- NOTE | 2024-07-22 13:22 | DVH ---
CLINICAL INDICATION: R/O FORGOTTEN NEEDLE TECHNIQUE: Single radiographic view of the right hip was obtained. Comparison: None FINDINGS/IMPRESSION: There is no evidence of acute fracture or dislocation. The visualized joint space is well maintained. The alignment is anatomical. Surgical clips are noted adjacent to the right ischial tuberosity with additional surgical clips of t he right medial upper thigh soft tissues. 11 mm linear density overlying the right pubic bone with myers perimposed moderate amount of fecal material within the rectum No additional foreign bodies are visua lized.
[2024-07-23] VITALS (8 sets, daily range): BP systolic 112–146; BP diastolic 66–76; PULSE 77–90; RESP 18–20; TEMP 97.8–98.7; O2SAT 94–98
[2024-07-23 05:23] LABS: Basophils # (auto) 0.1 10 ^3/uL (0-0.2); Basophils % (auto) 0.8 % (0.0-2.0); Eosinophils # (auto) 0.6 10 ^3/uL (0-0.8); Eosinophils % (auto) 6.6 % (0.0-7.0); Hematocrit 30.7 % (41.0-53.0); Hemoglobin 10.7 g/dL (13.5-17.5); Lymphocytes # (auto) 2.2 10 ^3/uL (0.4-5.4); Lymphocytes % (auto) 23.6 % (10.0-50.0); Mean Corpuscular Hemoglobin 33.8 pg (28.0-32.0); Mean Corpuscular Hgb Conc. 34.8 g/dL (32.0-36.0); Mean Corpuscular Volume 97.1 fL (80.0-100.0); Monocytes # (auto) 0.5 10 ^3/uL (0-1.3); Monocytes % (auto) 5.8 % (0.0-12.0); Neutrophils # (auto) 5.9 10 ^3/uL (1.6-8.6); Neutrophils % (auto) 63.2 % (37.0-80.0); Platelet Count (auto) 180 10^3/uL (140-450); Red Blood Cells 3.17 10^6/uL (4.5-5.90); Red Cell Distribution Width 13.5 % (11.8-14.3); White Blood Cell 9.3 10^3/uL (4.4-10.8)
[2024-07-23 05:37] LABS: Anion Gap 11 (5-15); Carbon Dioxide 24 mmol/L (20-31); Chloride 103 mmol/L (98-107); Potassium 4.8 mmol/L (3.5-5.1); Sodium 138 mmol/L (136-145)
[2024-07-23 05:38] LABS: Calcium 9.8 mg/dL (8.7-10.4)
[2024-07-23 05:43] LABS: BUN/Creatinine Ratio 13.4 (10.0-20.0); Magnesium 1.9 mg/dL (1.6-2.6)
[2024-07-23 05:46] LABS: Blood Urea Nitrogen 36 mg/dL (9-23); Glucose 189 mg/dL (74-106)
[2024-07-23] MEDS: METOPROLOL SUCCINATE XL 50 MG TAB PO SCH (10:56)
--- NOTE | 2024-07-23 14:02 | DVHPN2 ---
Subjective No chest pain with decreasing palpitations and SOB upon exertion; stable discomfort in right inguinal area Reviewed: Care Plan, H&P, Labs, Medications, Previous Orders, Radiology, Other (Consultation) Changes from previous H/P or p: Changes Objective Vitals Vital Signs Date Time Temp Pulse Resp B/P (MAP) Pulse Ox O2 Delivery O2 Flow Rate FiO2 07/23/24 10:56 81 118/75 07/23/24 09:00 98.7 20 95 98.7 07/23/24 08:00 Room Air* 0 21 Intake/Output Intake and Output 07/23/24 07:00 Intake Total 1859 ml Output Total 375 ml Balance 1484 ml Intake Oral 1859 ml Output Urine Total 375 ml # Voids 5 # Bowel Movements 1 Exam Nursing staff as a industrial psychology professor General Appearance: Alert, Oriented X3, Cooperative, No acute distress HEENT: Atraumatic Lungs: Clear to auscultation, Normal air movement Chest/Breasts: Other (AICD in place) Cardiovascular: Regular rate, Normal S1, Normal S2 Extremities: Other (Right inguinal hernia cardiac catheterization site with a clean dressing with no swelling/bleeding) Neuro: Normal speech, Cranial nerves 3-12 NL Psych/Mental Status: Mental status NL, Mood NL Medications Current Medications Medications Dose Ordered Sig/Toby Route Start Time Stop Time Status Last Admin Dose Admin Sodium Chloride 10 ml Q8HR IV 07/19/24 06:00 07/23/24 13:43 10 ML Ondansetron HCl 4 mg Q4HP PRN IV 07/19/24 00:30 Docusate Sodium 100 mg BIDPRN PRN PO 07/19/24 00:30 Acetaminophen 650 mg Q6HP PRN PO 07/19/24 00:30 07/22/24 21:09 650 MG Morphine Sulfate 2 mg Q4HPRN PRN IV 07/19/24 00:30 07/20/24 05:58 2 MG Nitroglycerin 0.4 mg Q5MINP PRN SL 07/19/24 00:30 Morphine Sulfate 2 mg Q30M PRN IV 07/19/24 00:30 Aspirin 81 mg DAILY PO 07/19/24 10:00 07/23/24 10:55 81 MG Atorvastatin Calcium 80 mg HS PO 07/19/24 22:00 07/22/24 21:08 80 MG Heparin Sodium/ Dextrose 250 ml @ 10.908 mls/ hr [id number] IV 07/19/24 00:45 UNV Furosemide 40 mg DAILY IV 07/19/24 10:00 07/23/24 10:55 40 MG Hydralazine HCl 10 mg Q6HP PRN IV 07/19/24 01:30 Clopidogrel Bisulfate 75 mg DAILY PO 07/20/24 10:00 07/23/24 10:56 75 MG Metoprolol Succinate 100 mg DAILY PO 07/23/24 10:00 07/23/24 10:56 100 MG Laboratory Results Laboratory Tests 07/23/24 04:51 Chemistry Test 07/23/24 04:51 Calcium Level 9.8 mg/dL (8.7-10.4) Magnesium Level 1.9 mg/dL (1.6-2.6) Urinalysis Test 07/19/24 01:30 Urine Color Light-yellow (Yellow) Urine Clarity Clear (Clear) Urine pH 6.0 (5.0-9.0) Urine Specific [place] 1.011 (1.001-1.035) Urine Protein 2+ (Negative) H Urine Ketones Negative (Negative) Urine Blood Trace /uL (Negative) H Urine Nitrite Negative (Negative) Urine Bilirubin Negative (Negative) Urine Urobilinogen Normal mg/dL (Negative) Urine Leukocyte Esterase Negative /uL (Negative) Urine RBC <1 /hpf (0 - 3) Urine WBC <1 /hpf (0 - 3) Urine Squamous Epithelial Cells None seen /hpf (<5) Urine Bacteria None seen /hpf (None Seen) Urine Glucose 2+ mg/dL (Normal) H Labs and/or images reviewed: Labs reviewed by me, Image(s) reviewed by me Assessment/Plan Assessment/Plan A 73-year-old male patient; multiple comorbidities; who presented to the emergency department with chest pain. #Discomfort at the site of cardiac catheterization of right inguinal area; stable examined with industrial psychology professor; no swelling/bleeding; clean dressing; continue pain management as indicated; ultrasound and x-ray that showed surgical clips; Dr. Tobias was informed and will discuss with the patient; will apply warm compress to the right greater saphenous vein area; continue monitoring #Runs of V-tach causing palpitations; controlled with metoprolol succinate to 100 mg daily; telemetry; continue monitoring #Chest pain due to ACS status post selective left and right coronary angiography, angiography of the VANG, angiography of subclavian, angiography of the saphenous vein graft to the PDA, angiography of the saphenous vein graft to the OM, angiography of the saphenous vein graft to the diagonal, angioplasty with stent placement of the ostium of the left main with a 3.5x 18 mm [place] stent, and thrombectomy/shockwave treatment of the ostium of the left main on July 19, [address] Tobias; continue telemetry; continue aspirin, clopidogrel, and statin; continue pain management as indicated; continue monitoring #CAD status post CABG and multiple stenting; management as above; cardiology is following; continue monitoring #Acute on chronic diastolic and systolic heart failure; continue IV diuresis; strict input and output monitoring; cardiology is following; continue monitoring #Acute hypoxic respiratory failure due to pulmonary edema secondary to acute on chronic diastolic and systolic heart failure; continue oxygen therapy as needed; continue monitoring #Hypertensive heart disease with heart failure; continue antihypertensive medications and adjust accordingly; continue monitoring #Status post AICD; cardiology is following; continue monitoring #BRIA on CKD stage IV; s/p IV contrast; can not rule out vasomotor nephropathy; avoid nephrotoxic agents; continue monitoring #Hypokalemia and hypomagnesemia due to diuresis; replace electrolytes as needed; continue monitoring #Metabolic syndrome with diabetes mellitus type 2, overweight, and dyslipidemia; continue current medical management; continue monitoring #Elevated D-dimer; in the setting of CKD stage IV and ACS; ordered V/Q scan in the setting of CKD stage IV as the patient is having palpitations and SOB upon exertion; Doppler ultrasound of lower extremities showed no DVTs; continue monitoring This medical document was created using an electronic medical record system with computerized dictation system. Although this document has been carefully reviewed, there might still be some phonetic and typographical errors. These areas are purely typographical due to imperfections of the software programs, and do not reflect any compromise in the patient's medical care. Plan discussed with: Patient, Spouse, Other (Nurse) My Orders Orders - BITA LIND MD Procedure Category Date Status Time Communication Order ORDERS 07/22/24 Transmitted 14:20 Dietary NOTICE 07/22/24 Transmitted Recommendations 15:48 Date of Service: Jul 23, 2024 Billing Provider: BITA LIND MD Common Visit Codes: [id number] INP/OBS CARE(HIGH) BITA LIND MD Jul 23, 2024 14:02
--- NOTE | 2024-07-23 14:03 | DVHPN2 ---
Subjective No chest pain with decreasing palpitations and SOB upon exertion; increasing discomfort and right inguinal area Reviewed: Care Plan, H&P, Labs, Medications, Previous Orders, Radiology, Other (Consultation) Objective Vitals Vital Signs Date Time Temp Pulse Resp B/P (MAP) Pulse Ox O2 Delivery O2 Flow Rate FiO2 07/23/24 10:56 81 118/75 07/23/24 09:00 98.7 20 95 98.7 07/23/24 08:00 Room Air* 0 21 Intake/Output Intake and Output 07/23/24 07:00 Intake Total 1859 ml Output Total 375 ml Balance 1484 ml Intake Oral 1859 ml Output Urine Total 375 ml # Voids 5 # Bowel Movements 1 Exam Nursing staff as a metal stamper General Appearance: Alert, Oriented X3, Cooperative, No acute distress HEENT: Atraumatic Lungs: Clear to auscultation, Normal air movement Chest/Breasts: Other (AICD in place) Cardiovascular: Regular rate, Normal S1, Normal S2 Extremities: Other (Right inguinal hernia cardiac catheterization site with a clean dressing with no swelling/bleeding) Neuro: Normal speech, Cranial nerves 3-12 NL Psych/Mental Status: Mental status NL, Mood NL Medications Current Medications Medications Dose Ordered Sig/Toby Route Start Time Stop Time Status Last Admin Dose Admin Sodium Chloride 10 ml Q8HR IV 07/19/24 06:00 07/23/24 13:43 10 ML Ondansetron HCl 4 mg Q4HP PRN IV 07/19/24 00:30 Docusate Sodium 100 mg BIDPRN PRN PO 07/19/24 00:30 Acetaminophen 650 mg Q6HP PRN PO 07/19/24 00:30 07/22/24 21:09 650 MG Morphine Sulfate 2 mg Q4HPRN PRN IV 07/19/24 00:30 07/20/24 05:58 2 MG Nitroglycerin 0.4 mg Q5MINP PRN SL 07/19/24 00:30 Morphine Sulfate 2 mg Q30M PRN IV 07/19/24 00:30 Aspirin 81 mg DAILY PO 07/19/24 10:00 07/23/24 10:55 81 MG Atorvastatin Calcium 80 mg HS PO 07/19/24 22:00 07/22/24 21:08 80 MG Heparin Sodium/ Dextrose 250 ml @ 10.908 mls/ hr [id number] IV 07/19/24 00:45 UNV Furosemide 40 mg DAILY IV 07/19/24 10:00 07/23/24 10:55 40 MG Hydralazine HCl 10 mg Q6HP PRN IV 07/19/24 01:30 Clopidogrel Bisulfate 75 mg DAILY PO 07/20/24 10:00 07/23/24 10:56 75 MG Metoprolol Succinate 100 mg DAILY PO 07/23/24 10:00 07/23/24 10:56 100 MG Laboratory Results Laboratory Tests 07/23/24 04:51 Chemistry Test 07/23/24 04:51 Calcium Level 9.8 mg/dL (8.7-10.4) Magnesium Level 1.9 mg/dL (1.6-2.6) Urinalysis Test 07/19/24 01:30 Urine Color Light-yellow (Yellow) Urine Clarity Clear (Clear) Urine pH 6.0 (5.0-9.0) Urine Specific [place] 1.011 (1.001-1.035) Urine Protein 2+ (Negative) H Urine Ketones Negative (Negative) Urine Blood Trace /uL (Negative) H Urine Nitrite Negative (Negative) Urine Bilirubin Negative (Negative) Urine Urobilinogen Normal mg/dL (Negative) Urine Leukocyte Esterase Negative /uL (Negative) Urine RBC <1 /hpf (0 - 3) Urine WBC <1 /hpf (0 - 3) Urine Squamous Epithelial Cells None seen /hpf (<5) Urine Bacteria None seen /hpf (None Seen) Urine Glucose 2+ mg/dL (Normal) H Assessment/Plan Assessment/Plan A 73-year-old male patient; multiple comorbidities; who presented to the emergency department with chest pain. #Discomfort at the site of cardiac catheterization of right inguinal area; increasing; examined with metal stamper; no swelling/bleeding; clean dressing; continue pain management as indicated; ordered ultrasound and x-ray that showed surgical clips; Dr. Tobias was informed and will discuss with the patient; will apply warm compress to the right greater saphenous vein area; continue monitoring #Runs of V-tach causing palpitations; increased metoprolol succinate to 100 mg daily; telemetry; continue monitoring #Chest pain due to ACS status post selective left and right coronary angiography, angiography of the VANG, angiography of subclavian, angiography of the saphenous vein graft to the PDA, angiography of the saphenous vein graft to the OM, angiography of the saphenous vein graft to the diagonal, angioplasty with stent placement of the ostium of the left main with a 3.5x 18 mm [employer] stent, and thrombectomy/shockwave treatment of the ostium of the left main on July 19, [address] Tobias; continue telemetry; continue aspirin, clopidogrel, and statin; continue pain management as indicated; continue monitoring #CAD status post CABG and multiple stenting; management as above; cardiology is following; continue monitoring #Acute on chronic diastolic and systolic heart failure; continue IV diuresis; strict input and output monitoring; cardiology is following; continue monitoring #Acute hypoxic respiratory failure due to pulmonary edema secondary to acute on chronic diastolic and systolic heart failure; continue oxygen therapy as needed; continue monitoring #Hypertensive heart disease with heart failure; continue antihypertensive medications and adjust accordingly; continue monitoring #Status post AICD; cardiology is following; continue monitoring #BRIA on CKD stage IV; s/p IV contrast; can not rule out vasomotor nephropathy; avoid nephrotoxic agents; continue monitoring #Hypokalemia and hypomagnesemia due to diuresis; replace electrolytes as needed; continue monitoring #Metabolic syndrome with diabetes mellitus type 2, overweight, and dyslipidemia; continue current medical management; continue monitoring #Elevated D-dimer; in the setting of CKD stage IV and ACS; ordered V/Q scan in the setting of CKD stage IV as the patient is having palpitations and SOB upon exertion; Doppler ultrasound of lower extremities showed no DVTs; continue monitoring July 22, 2024 imaging studies results: Right groin ultrasound: 1. Linear echogenic structure with posterior shadowing at the right groin measuring up to 1.3 cm. Finding is suspicious for a foreign body such as a needle fragment. Recommend correlation with radiographs. 2. Superficial thrombophlebitis in the right greater saphenous vein. 3. No significant hematoma. Right hip x-rays: Surgical clips are noted adjacent to the right ischial tuberosity with additional surgical clips of the right medial upper thigh soft tissues. 11 mm linear density overlying the right pubic bone with superimposed moderate amount of fecal material within the rectum No additional foreign bodies are visualized. This medical document was created using an electronic medical record system with computerized dictation system. Although this document has been carefully reviewed, there might still be some phonetic and typographical errors. These areas are purely typographical due to imperfections of the software programs, and do not reflect any compromise in the patient's medical care. My Orders Orders - BITA LIND MD Procedure Category Date Status Time Communication Order ORDERS 07/22/24 Transmitted 14:20 Dietary NOTICE 07/22/24 Transmitted Recommendations 15:48 BITA LIND MD Jul 23, 2024 14:03
[2024-07-24] VITALS (7 sets, daily range): BP systolic 109–133; BP diastolic 50–77; PULSE 72–88; RESP 16–20; TEMP 97.5–98.8; O2SAT 92–99
[2024-07-24 07:22] LABS: Basophils # (auto) 0.1 10 ^3/uL (0-0.2); Basophils % (auto) 0.9 % (0.0-2.0); Eosinophils # (auto) 0.7 10 ^3/uL (0-0.8); Eosinophils % (auto) 6.7 % (0.0-7.0); Hematocrit 33.7 % (41.0-53.0); Hemoglobin 11.6 g/dL (13.5-17.5); Lymphocytes # (auto) 2.2 10 ^3/uL (0.4-5.4); Lymphocytes % (auto) 21.6 % (10.0-50.0); Mean Corpuscular Hemoglobin 33.2 pg (28.0-32.0); Mean Corpuscular Hgb Conc. 34.4 g/dL (32.0-36.0); Mean Corpuscular Volume 96.5 fL (80.0-100.0); Monocytes # (auto) 0.6 10 ^3/uL (0-1.3); Monocytes % (auto) 6.1 % (0.0-12.0); Neutrophils # (auto) 6.6 10 ^3/uL (1.6-8.6); Neutrophils % (auto) 64.7 % (37.0-80.0); Platelet Count (auto) 205 10^3/uL (140-450); Red Cell Distribution Width 13.6 % (11.8-14.3); White Blood Cell 10.3 10^3/uL (4.4-10.8)
[2024-07-24 07:31] LABS: Alanine Aminotransferase 16 U/L (7-40); Albumin 4.4 g/dL (3.2-4.8); Alkaline Phosphatase 84 U/L (46-116); Anion Gap 10 (5-15); BUN/Creatinine Ratio 16.1 (10.0-20.0); Calcium 9.8 mg/dL (8.7-10.4); Carbon Dioxide 25 mmol/L (20-31); Chloride 101 mmol/L (98-107); Magnesium 1.7 mg/dL (1.6-2.6); Potassium 4.6 mmol/L (3.5-5.1); Sodium 136 mmol/L (136-145)
[2024-07-24 07:32] LABS: Bilirubin, Total 0.5 mg/dL (0.2-1.0); Total Protein 7.2 g/dL (5.7-8.2)
[2024-07-24 07:39] LABS: Aspartate Aminotransferase 10 U/L (13-40); Blood Urea Nitrogen 45 mg/dL (9-23); Glucose 186 mg/dL (74-106)
--- NOTE | 2024-07-24 16:03 | DVH ---
CLINICAL INDICATION: R foot pain. Thank You! TECHNIQUE: 2 radiographic views of the right foot were obtained. Comparison: XY R HIP 1V XRAY on DOS: 07/22/24 FINDINGS/IMPRESSION: There is no evidence of acute fracture or dislocation. The visualized joint space is well maintained. The alignment is anatomical. There is no radiopaque foreign body.
--- NOTE | 2024-07-24 21:20 | DVHPN2 ---
Subjective No chest pain with decreasing palpitations and SOB upon exertion; stable discomfort and right inguinal area; right big toe pain Reviewed: Care Plan, H&P, Labs, Medications, Previous Orders, Radiology, Other (Consultation) Changes from previous H/P or p: Changes Objective Vitals Vital Signs Date Time Temp Pulse Resp B/P (MAP) Pulse Ox O2 Delivery O2 Flow Rate FiO2 07/24/24 17:12 98.3 73 20 130/76 (94) 99 98.3 07/24/24 07:55 Room Air* 0 21 Intake/Output Intake and Output 07/24/24 07:00 Intake Total 1480 ml Output Total 1000 ml Balance 480 ml Intake Oral 1480 ml Output Urine Total 1000 ml # Voids 4 # Bowel Movements 1 Exam Nursing staff as a manager music General Appearance: Alert, Oriented X3, Cooperative, No acute distress HEENT: Atraumatic Lungs: Clear to auscultation, Normal air movement Chest/Breasts: Other (AICD in place) Cardiovascular: Regular rate, Normal S1, Normal S2 Musculoskeletal: Other (Tender right big toe with no redness/warmth/swelling) Extremities: Other (Right inguinal hernia cardiac catheterization site with a clean dressing with no swelling/bleeding) Neuro: Normal speech, Cranial nerves 3-12 NL Psych/Mental Status: Mental status NL, Mood NL Medications Current Medications Medications Dose Ordered Sig/Toby Route Start Time Stop Time Status Last Admin Dose Admin Sodium Chloride 10 ml Q8HR IV 07/19/24 06:00 07/24/24 12:05 10 ML Ondansetron HCl 4 mg Q4HP PRN IV 07/19/24 00:30 Docusate Sodium 100 mg BIDPRN PRN PO 07/19/24 00:30 Acetaminophen 650 mg Q6HP PRN PO 07/19/24 00:30 07/24/24 10:39 650 MG Morphine Sulfate 2 mg Q4HPRN PRN IV 07/19/24 00:30 07/20/24 05:58 2 MG Nitroglycerin 0.4 mg Q5MINP PRN SL 07/19/24 00:30 Morphine Sulfate 2 mg Q30M PRN IV 07/19/24 00:30 Aspirin 81 mg DAILY PO 07/19/24 10:00 07/24/24 09:33 81 MG Atorvastatin Calcium 80 mg HS PO 07/19/24 22:00 07/23/24 23:03 80 MG Heparin Sodium/ Dextrose 250 ml @ 10.908 mls/ hr [id number] IV 07/19/24 00:45 UNV Furosemide 40 mg DAILY IV 07/19/24 10:00 07/24/24 09:34 40 MG Hydralazine HCl 10 mg Q6HP PRN IV 07/19/24 01:30 Clopidogrel Bisulfate 75 mg DAILY PO 07/20/24 10:00 07/24/24 09:33 75 MG Metoprolol Succinate 100 mg DAILY PO 07/23/24 10:00 07/24/24 09:33 100 MG Laboratory Results Laboratory Tests 07/24/24 06:57 Chemistry Test 07/24/24 06:57 Albumin 4.4 g/dL (3.2-4.8) Calcium Level 9.8 mg/dL (8.7-10.4) Magnesium Level 1.7 mg/dL (1.6-2.6) Total Protein 7.2 g/dL (5.7-8.2) LFT Test 07/24/24 06:57 Alanine Aminotransferase (ALT) 16 U/L (7-40) Alkaline Phosphatase 84 U/L (46-116) Aspartate Amino Transferase (AST) 10 U/L (13-40) L Total Bilirubin 0.5 mg/dL (0.2-1.0) Urinalysis Test 07/19/24 01:30 Urine Color Light-yellow (Yellow) Urine Clarity Clear (Clear) Urine pH 6.0 (5.0-9.0) Urine Specific [place] 1.011 (1.001-1.035) Urine Protein 2+ (Negative) H Urine Ketones Negative (Negative) Urine Blood Trace /uL (Negative) H Urine Nitrite Negative (Negative) Urine Bilirubin Negative (Negative) Urine Urobilinogen Normal mg/dL (Negative) Urine Leukocyte Esterase Negative /uL (Negative) Urine RBC <1 /hpf (0 - 3) Urine WBC <1 /hpf (0 - 3) Urine Squamous Epithelial Cells None seen /hpf (<5) Urine Bacteria None seen /hpf (None Seen) Urine Glucose 2+ mg/dL (Normal) H Labs and/or images reviewed: Labs reviewed by me, Image(s) reviewed by me Assessment/Plan Assessment/Plan A 73-year-old male patient; multiple comorbidities; who presented to the emergency department with chest pain. #Right big toe pain; ordered x-rays and uric acid; can not give nonsteroidal anti-inflammatory drugs due to BRIA on CKD stage IV; can not give prednisone due to recent cardiac catheterization; will apply warm compresses; continue monitoring #Discomfort at the site of cardiac catheterization of right inguinal area; stable; examined with manager music; no swelling/bleeding; clean dressing; continue pain management as indicated; ordered ultrasound and x-ray that showed surgical clips; Dr. Tobias was informed and will discuss with the patient; will apply warm compress to the right greater saphenous vein area; continue monitoring #Runs of V-tach causing palpitations; increased metoprolol succinate to 100 mg daily; telemetry; continue monitoring #Chest pain due to ACS status post selective left and right coronary angiography, angiography of the VANG, angiography of subclavian, angiography of the saphenous vein graft to the PDA, angiography of the saphenous vein graft to the OM, angiography of the saphenous vein graft to the diagonal, angioplasty with stent placement of the ostium of the left main with a 3.5x 18 mm [place] stent, and thrombectomy/shockwave treatment of the ostium of the left main on July 19, [address] Tobias; continue telemetry; continue aspirin, clopidogrel, and statin; continue pain management as indicated; continue monitoring #CAD status post CABG and multiple stenting; management as above; cardiology is following; continue monitoring #Acute on chronic diastolic and systolic heart failure; continue IV diuresis; strict input and output monitoring; cardiology is following; continue monitoring #Acute hypoxic respiratory failure due to pulmonary edema secondary to acute on chronic diastolic and systolic heart failure; continue oxygen therapy as needed; continue monitoring #Hypertensive heart disease with heart failure; continue antihypertensive medications and adjust accordingly; continue monitoring #Status post AICD; cardiology is following; continue monitoring #BRAI on CKD stage IV; s/p IV contrast; can not rule out vasomotor nephropathy; avoid nephrotoxic agents; no resolution of BRIA yet; to consider nephrology consult tomorrow continue monitoring #Hypokalemia and hypomagnesemia due to diuresis; replace electrolytes as needed; continue monitoring #Metabolic syndrome with diabetes mellitus type 2, overweight, and dyslipidemia; continue current medical management; continue monitoring #Elevated D-dimer; in the setting of CKD stage IV and ACS; ordered V/Q scan in the setting of CKD stage IV as the patient is having palpitations and SOB upon exertion; Doppler ultrasound of lower extremities showed no DVTs; continue monitoring July 22, 2024 imaging studies results: Right groin ultrasound: 1. Linear echogenic structure with posterior shadowing at the right groin measuring up to 1.3 cm. Finding is suspicious for a foreign body such as a needle fragment. Recommend correlation with radiographs. 2. Superficial thrombophlebitis in the right greater saphenous vein. 3. No significant hematoma. Right hip x-rays: Surgical clips are noted adjacent to the right ischial tuberosity with additional surgical clips of the right medial upper thigh soft tissues. 11 mm linear density overlying the right pubic bone with superimposed moderate amount of fecal material within the rectum No additional foreign bodies are visualized. This medical document was created using an electronic medical record system with computerized dictation system. Although this document has been carefully reviewed, there might still be some phonetic and typographical errors. These areas are purely typographical due to imperfections of the software programs, and do not reflect any compromise in the patient's medical care. Plan discussed with: Patient, Spouse, Other (Nurse) My Orders Orders - BITA LIND MD Procedure Category Date Status Time R Foot 2 View Xray XY 07/24/24 Resulted 11:22 Communication Order ORDERS 07/24/24 Transmitted 11:22 Date of Service: Jul 24, 2024 Billing Provider: BITA LIND MD Common Visit Codes: [id number] INP/OBS CARE(HIGH) BITA LIND MD Jul 24, 2024 21:20
[2024-07-25 05:00] VITALS: BP 124/71; PULSE 87; RESP 17; TEMP 97.1; O2SAT 94
[2024-07-25 07:24] LABS: Anion Gap 10 (5-15); Carbon Dioxide 25 mmol/L (20-31); Chloride 101 mmol/L (98-107)
[2024-07-25 07:25] LABS: Calcium 9.9 mg/dL (8.7-10.4)
[2024-07-25 07:30] LABS: BUN/Creatinine Ratio 16.5 (10.0-20.0)
[2024-07-25 07:31] LABS: Magnesium 1.7 mg/dL (1.6-2.6)
[2024-07-25 07:32] LABS: Blood Urea Nitrogen 49 mg/dL (9-23); Glucose 205 mg/dL (74-106); Sodium 136 mmol/L (136-145)
[2024-07-25 08:00] VITALS: BP 130/76; PULSE 91; PULSE 94; RESP 18; TEMP 97.5; O2SAT 98
--- NOTE | 2024-07-25 09:26 | DVHPN2 ---
Progress Note - Dictate Date Seen: Jul 24, 2024 Medical Necessity Reason Pt with a Central, PICC or Fol: No Subjective PT WITH RECURRENT CP ISCHEMIC CM NOT A CANDIDATE FOR REVASCULARIZATION SX OF SOB PMH: ORGANIC HD HFrEF ACUTE CAD S/P CABG S/P AICD ELEVATED BNP DIABETES NEUROPATHY VASCULOPATHY NEPHROPATHY CKD STAGE III ECHO EF <25% MILD AV SCLEROSIS MILD MAC LAE vital signs Vital Sign Date Time Temp Pulse Resp B/P (MAP) Pulse Ox O2 Delivery O2 Flow Rate FiO2 07/25/24 08:00 97.5 91 18 130/76 (94) 98 97.5 07/24/24 20:00 Room Air* 0 21 Total Intake and Output 07/24/24 07/24/24 07/25/24 15:00 23:00 07:00 Intake Total 1100 ml 850 ml Balance 1100 ml 850 ml medications Current Medications Medications Dose Ordered Sig/Toby Route Start Time Stop Time Status Last Admin Dose Admin Sodium Chloride 10 ml Q8HR IV 07/19/24 06:00 07/25/24 06:25 10 ML Ondansetron HCl 4 mg Q4HP PRN IV 07/19/24 00:30 Docusate Sodium 100 mg BIDPRN PRN PO 07/19/24 00:30 Acetaminophen 650 mg Q6HP PRN PO 07/19/24 00:30 07/24/24 10:39 650 MG Morphine Sulfate 2 mg Q4HPRN PRN IV 07/19/24 00:30 07/20/24 05:58 2 MG Nitroglycerin 0.4 mg Q5MINP PRN SL 07/19/24 00:30 Morphine Sulfate 2 mg Q30M PRN IV 07/19/24 00:30 Aspirin 81 mg DAILY PO 07/19/24 10:00 07/24/24 09:33 81 MG Atorvastatin Calcium 80 mg HS PO 07/19/24 22:00 07/24/24 23:28 80 MG Heparin Sodium/ Dextrose 250 ml @ 10.908 mls/ hr [id number] IV 07/19/24 00:45 UNV Furosemide 40 mg DAILY IV 07/19/24 10:00 07/24/24 09:34 40 MG Hydralazine HCl 10 mg Q6HP PRN IV 07/19/24 01:30 Clopidogrel Bisulfate 75 mg DAILY PO 07/20/24 10:00 07/24/24 09:33 75 MG Metoprolol Succinate 100 mg DAILY PO 07/23/24 10:00 07/24/24 09:33 100 MG laboratory and microbiology Laboratory Tests 07/25/24 06:41 07/24/24 06:57 Test 07/25/24 06:41 Range/Units Serum Glucose 205 H 74-106 mg/dL Problem List NSTEMI RECURRENT CP ISCHEMIC CM NOT A CANDIDATE FOR REVASCULARIZATION SX OF SOB PMH: ORGANIC HD HFrEF ACUTE CAD S/P CABG S/P AICD ELEVATED BNP BIV AICD DIABETES NEUROPATHY VASCULOPATHY NEPHROPATHY CKD STAGE III ECHO EF <25% MILD AV SCLEROSIS MILD MAC LAE Assessment/Plan ACS PROTOCOL [facility] 01/14 S/P CABG X3 LAD OCCLUDED VANG TO LAD OCCLUDED CXM OCCLUDED SVG TO OM PATENT RCA OCCLUDED SVG TO PDA OCCLUDED WILL PROCEED WITH ANGIO BUT LIKELIHOOD OF ANT TARGETS FOR REVASCULARIZATION IS UNLIKELY S/P PTCA STENT LEFT MAIN/ CX DEGENERATIVE SVG GRAFT TO OM1 CAUSING EMBOLISM DISTALLY START AMBULATING CONT DAPT Dietary Evaluation Review Comments: Consider renal specific diet (K2 gram, low phos, 2gm Na, 80g Pro/CCHO 60g) Expected Outcomes/Goals: Patient appetite and labs to improve F/u in 3-5 days Plan discussed with: Patient KIKE LUNA MD Jul 25, 2024 09:26
--- NOTE | 2024-07-25 13:19 | DVHPN2 ---
Progress Note - Dictate Medical Necessity Reason Pt with a Central, PICC or Fol: No Subjective PT WITH RECURRENT CP ISCHEMIC CM NOT A CANDIDATE FOR REVASCULARIZATION SX OF SOB PMH: ORGANIC HD HFrEF ACUTE CAD S/P CABG S/P AICD ELEVATED BNP DIABETES NEUROPATHY VASCULOPATHY NEPHROPATHY CKD STAGE III ECHO EF <25% MILD AV SCLEROSIS MILD MAC LAE vital signs Vital Sign Date Time Temp Pulse Resp B/P (MAP) Pulse Ox O2 Delivery O2 Flow Rate FiO2 07/25/24 11:15 128/77 07/25/24 10:02 91 07/25/24 08:00 Room Air* 0 21 07/25/24 08:00 97.5 18 98 97.5 Total Intake and Output 07/24/24 07/24/24 07/25/24 15:00 23:00 07:00 Intake Total 1100 ml 850 ml Balance 1100 ml 850 ml medications Current Medications Medications Dose Ordered Sig/Toby Route Start Time Stop Time Status Last Admin Dose Admin Sodium Chloride 10 ml Q8HR IV 07/19/24 06:00 07/25/24 06:25 10 ML Ondansetron HCl 4 mg Q4HP PRN IV 07/19/24 00:30 Docusate Sodium 100 mg BIDPRN PRN PO 07/19/24 00:30 Acetaminophen 650 mg Q6HP PRN PO 07/19/24 00:30 07/24/24 10:39 650 MG Morphine Sulfate 2 mg Q4HPRN PRN IV 07/19/24 00:30 07/20/24 05:58 2 MG Nitroglycerin 0.4 mg Q5MINP PRN SL 07/19/24 00:30 Morphine Sulfate 2 mg Q30M PRN IV 07/19/24 00:30 Aspirin 81 mg DAILY PO 07/19/24 10:00 07/25/24 10:03 81 MG Atorvastatin Calcium 80 mg HS PO 07/19/24 22:00 07/24/24 23:28 80 MG Heparin Sodium/ Dextrose 250 ml @ 10.908 mls/ hr [id number] IV 07/19/24 00:45 UNV Furosemide 40 mg DAILY IV 07/19/24 10:00 07/25/24 11:15 40 MG Hydralazine HCl 10 mg Q6HP PRN IV 07/19/24 01:30 Clopidogrel Bisulfate 75 mg DAILY PO 07/20/24 10:00 07/25/24 10:03 75 MG Metoprolol Succinate 100 mg DAILY PO 07/23/24 10:00 07/25/24 10:02 100 MG laboratory and microbiology Laboratory Tests 07/25/24 06:41 07/24/24 06:57 Test 07/25/24 06:41 Range/Units Serum Glucose 205 H 74-106 mg/dL Problem List NSTEMI RECURRENT CP ISCHEMIC CM NOT A CANDIDATE FOR REVASCULARIZATION SX OF SOB PMH: ORGANIC HD HFrEF ACUTE CAD S/P CABG S/P AICD ELEVATED BNP BIV AICD DIABETES NEUROPATHY VASCULOPATHY NEPHROPATHY CKD STAGE III ECHO EF <25% MILD AV SCLEROSIS MILD MAC LAE Assessment/Plan [facility] 01/14 S/P CABG X3 LAD OCCLUDED VANG TO LAD OCCLUDED CXM OCCLUDED SVG TO OM PATENT RCA OCCLUDED SVG TO PDA OCCLUDED WILL PROCEED WITH ANGIO BUT LIKELIHOOD OF ANT TARGETS FOR REVASCULARIZATION IS UNLIKELY S/P PTCA STENT LEFT MAIN/ CX DEGENERATIVE SVG GRAFT TO OM1 CAUSING EMBOLISM DISTALLY START AMBULATING CONT DAPT Dietary Evaluation Review Comments: Consider renal specific diet (K2 gram, low phos, 2gm Na, 80g Pro/CCHO 60g) Expected Outcomes/Goals: Patient appetite and labs to improve F/u in 3-5 days Plan discussed with: Patient KIKE LUNA MD Jul 25, 2024 13:19
[2024-07-25 13:23] VITALS: BP 141/74; PULSE 88; RESP 17; TEMP 97.8; O2SAT 98
--- NOTE | 2024-07-25 15:23 | DVH ---
EXAM: NM NM VQ SCAN HISTORY: PULMONARY EMBOLISM COMPARISON: None TECHNIQUE: Following the administration of the ventilation agent, standard projections of the lungs were acquired. The same images were repeated after administration of the perfusion agent. Findings: Ventilation images demonstrate homogenous distribution of radiotracer throughout both lungs. Perfusion images demonstrate homogeneous distribution of radiotracer throughout both lungs. No periph eral wedge-shaped moderate or large subsegmental or segmental mismatched perfusion defects to suggest acute pulmonary embolism. Impression: 1. Based on PIOPED criteria, low probability for pulmonary embolism.
[2024-07-25 17:00] VITALS: BP_SYST 74; PULSE 88; RESP 16; TEMP 98.3; O2SAT 97
[2024-07-25] MEDS ORDERED: COLC1CAP PO (17:02)
[2024-07-25] MEDS ORDERED: ASPI-325 PO (17:02)
[2024-07-25] MEDS ORDERED: CLOP75TA70 PO (17:02)
--- NOTE | 2024-07-25 17:04 | DVHDS2 ---
Discharge Summary Date of Admission Jul 19, 2024 at 00:20 Date of Discharge: Jul 25, 2024 Labs/Diagnostic Data: Laboratory Results Test 07/25/24 06:41 07/24/24 06:57 07/20/24 05:20 07/19/24 17:40 Sodium Level 136 mmol/L (136-145) Potassium Level 5.0 mmol/L (3.5-5.1) Chloride Level 101 mmol/L (98-107) Carbon Dioxide Level 25 mmol/L (20-31) Anion Gap 10 (5-15) Blood Urea Nitrogen 49 mg/dL (9-23) Creatinine 2.97 mg/dL (0.700-1.30) Glomerular Filtration Rate Calc 21 mL/min (>90) BUN/Creatinine Ratio 16.5 (10.0-20.0) Serum Glucose 205 mg/dL (74-106) Calcium Level 9.9 mg/dL (8.7-10.4) Magnesium Level 1.7 mg/dL (1.6-2.6) White Blood Count 10.3 10^3/uL (4.4-10.8) Red Blood Count 3.50 10^6/uL (4.5-5.90) Hemoglobin 11.6 g/dL (13.5-17.5) Hematocrit 33.7 % (41.0-53.0) Mean Corpuscular Volume 96.5 fL (80.0-100.0) Mean Corpuscular Hemoglobin 33.2 pg (28.0-32.0) Mean Corpuscular Hemoglobin Concent 34.4 g/dL (32.0-36.0) Red Cell Distribution Width 13.6 % (11.8-14.3) Platelet Count 205 10^3/uL (140-450) Mean Platelet Volume 7.8 fL (6.9-10.8) Neutrophils (%) (Auto) 64.7 % (37.0-80.0) Lymphocytes (%) (Auto) 21.6 % (10.0-50.0) Monocytes (%) (Auto) 6.1 % (0.0-12.0) Eosinophils (%) (Auto) 6.7 % (0.0-7.0) Basophils (%) (Auto) 0.9 % (0.0-2.0) Neutrophils # (Auto) 6.6 10 ^3/uL (1.6-8.6) Lymphocytes # (Auto) 2.2 10 ^3/uL (0.4-5.4) Monocytes # (Auto) 0.6 10 ^3/uL (0-1.3) Eosinophils # (Auto) 0.7 10 ^3/uL (0-0.8) Basophils # (Auto) 0.1 10 ^3/uL (0-0.2) Nucleated Red Blood Cells 0.0 % Uric Acid 8.4 mg/dL (3.7-9.2) Total Bilirubin 0.5 mg/dL (0.2-1.0) Aspartate Amino Transferase (AST) 10 U/L (13-40) Alanine Aminotransferase (ALT) 16 U/L (7-40) Alkaline Phosphatase 84 U/L (46-116) Total Protein 7.2 g/dL (5.7-8.2) Albumin 4.4 g/dL (3.2-4.8) B-Type Natriuretic Peptide 638.98 pg/mL (0-100) Prothrombin Time 12.4 sec (9.3-11.8) Prothrombin Time INR 1.18 (0.9-1.15) Activated Partial Thromboplast Time 44.6 SEC (24.5-34.5) Test 07/19/24 13:18 07/19/24 03:40 07/19/24 01:30 07/19/24 00:43 Troponin I High Sensitivity 4833 ng/L (</=54) D-Dimer, Quantitative 1.86 mg/L FEU (0.0-0.49) Urine Color Light-yellow (Yellow) Urine Clarity Clear (Clear) Urine pH 6.0 (5.0-9.0) Urine Specific [place] 1.011 (1.001-1.035) Urine Protein 2+ (Negative) Urine Ketones Negative (Negative) Urine Blood Trace /uL (Negative) Urine Nitrite Negative (Negative) Urine Bilirubin Negative (Negative) Urine Urobilinogen Normal mg/dL (Negative) Urine Leukocyte Esterase Negative /uL (Negative) Urine RBC <1 /hpf (0 - 3) Urine WBC <1 /hpf (0 - 3) Urine Squamous Epithelial Cells None seen /hpf (<5) Urine Bacteria None seen /hpf (None Seen) Urine Glucose 2+ mg/dL (Normal) Urine Opiates Screen Neg (NEGATIVE) Urine Fentanyl Screen Neg (NEGATIVE) Urine Barbiturates Screen Neg (NEGATIVE) Urine Phencyclidine Screen Neg (NEGATIVE) Urine Amphetamines Screen Neg (NEGATIVE) Urine Benzodiazepines Screen Neg (NEGATIVE) Urine Cocaine Screen Neg (NEGATIVE) Urine Cannabinoids Screen Neg (NEGATIVE) Thyroid Stimulating Hormone (TSH) 2.78 uIU/mL (0.55-4.78) Other Laboratory Tests 07/25/24 06:41 07/24/24 06:57 Brief Hx & Hospital Course: Patient is 73 years old male with past medical history of hypertension, diabetes mellitus type 2, chronic kidney disease, hyperlipidemia, CABG x4, PTCA x2 on AICD came with a complaint of chest pain. Patient reports starting having chest pain around 9:00 p.m. last night. Patient reported pain was sudden onset which him up from sleep, on the left side of the chest, stabbing in nature, radiating to the back, aggravated with movement, relieved with pain medicine like nitroglycerin and morphine. Patient also endorsed some shortness of breath and palpitation like pounding heart associated with chest pain patient reported having nausea but no vomiting. Patient stated that he has been having off and on chest pain for last couple of weeks which easily happens when lying down but it gets better when sitting. But this time patient did not get any better. Patient also reported having leg swelling started 1 day before. Patient also reported having peripheral artery angiogram 1 month before for elevation of peripheral artery disease. Denied any fever, cough, constipation or diarrhea or dysuria, acute joint pain or swelling, dysarthria or change in vision. Initial lab workup revealed EKG no ST or T-wave changes. Elevated serum creatinine 2.39, GFR 28, elevated blood sugar level 233, elevated troponin I 56> 487> 4036, BNP 1527. UDS negative, Patient underwent LHC, tolerated procedure well. Had stent placement. See operative report below. Patient was also given [place] for home for Gout. Will followup with Dr. Tobias on Thursday Operations or Procedures DATE OF SURGERY: 07/19/2024 PROCEDURES PERFORMED: * Selective left and right coronary angiography. * Angiography of the VANG. * Angiography of subclavian. * Angiography of the saphenous vein graft to the PDA. Angiography of the saphenous vein graft to the OM. * Angiography of the saphenous vein graft to the diagonal. * Angioplasty with stent placement of the ostium of the left main with a 3.5 x 18 mm [place] stent. * Thrombectomy/shockwave treatment of the ostium of the left main. * Conscious sedation. INDICATIONS: The patient with history of congestive heart failure, ischemic cardiomyopathy, status post Bi-V AICD implantation, history of coronary artery bypass grafting, now presents with signs and complex of subendocardial GA. The patient had an angiogram done several months ago. It showed the patient to have VANG to the LAD was occluded. Saphenous vein graft to the diagonal was occluded. Saphenous vein graft to the OM was patent, but was showing severe degenerative changes with significant amount of thrombus throughout the degenerating graft, this graft is high likelihood for occlusion acutely. The patient with ischemic cardiomyopathy. RCA was a nondominant vessel and because of the above presentation, it is felt that the patient should undergo revascularization since the patient is having ischemic changes. DESCRIPTION OF PROCEDURE: The 6-[place]ones[place] diagnostic system was exchanged for a 6-[place] interventional system. Using an XB 3.5 guide catheter, the left main supplying the circumflex/obtuse marginal was then cannulated. It was then predilated using a shockwave and thrombectomy catheter with a 3.0 x 15 x 12 mm catheter. Following the dilatation, a 3.5 x 18 mm Resolute [place] stent was deployed across the ostium of the left main, supplying the circumflex artery. There were no complications. The patient tolerated the procedure well. RESULTS: * Left main and ostial 95% narrowing, It was supplying the circumflex [place]. * Left anterior descending artery was occluded. * Left internal mammary artery to the left anterior descending was occluded. * Saphenous vein graft to the diagonal was occluded. * Saphenous vein graft to the OM/circumflex was patent. It was giving collateral circulation to the left anterior descending as well as the posterior descending artery territory. * Right coronary artery was occluded. * Saphenous vein graft to the posterior descending artery was occluded. The patient; however, had a severely degenerated saphenous vein graft to the obtuse marginal and this was shedding thrombus and clots into the circulation, causing him to have ongoing chest pain and elevated troponin. At this time, we elected to open up the [place] left main that was supplying the obtuse marginal and circumflex artery. He had a 99% narrowing, status post thrombectomy with angioplasty with stent placement with a 3.5 x 18 mm Red[place] stent, now with less than 10% residual stenosis. With competitive flow through the [place] vessel, the circumflex and saphenous vein grafts more than likely will occlude but the patient will no longer have any issues of embolic event taking place. He will remain symptom free and not only that I think forward flow from the circumflex territory will be better suited for collateral flow as well. We will continue to follow the patient. Condition at Discharge: Poor Final Diagnosis/Problems List Ischemic Cardiomyopathy ACS Acute Systolic CHF Gout Discharge Disposition: Home Discharge Statement: "Patient was advised to return to the ER or call 911 if any headaches, dizziness, shortness of breath, chest pain, abdominal pain, bleeding, fevers, or worsening of medical condition. Patient was counseled about treatment plan, medications, possible side effects, patientverbalized understanding. All questions were answered to the best of my ability. This discharge took greater then 30 minutes in planning, reviewing documentation, counseling the patient, and discussing with other team members." ASSESSMENT ASSESSMENT Assessment Date of Service: Jul 25, 2024 Billing Provider: CESAR COVARRUBIAS MD Common Visit Codes: 60935-[id number] DISCH DAY >30min CESAR COVARRUBIAS MD Jul 25, 2024 17:04
[2024-07-25 17:29] VITALS: BP 149/74; PULSE 88; RESP 16; TEMP 98.3; O2SAT 97
== END 2024-07-25 18:36 | disposition home or self-care (01) | DRG 323 ==
LOC: ER 21:36 → TELE 07-19 00:20 → TELE-WESTW 07-19 04:40
PROVIDERS: ADMIT Internal Medicine; ATTEND Internal Medicine
PROC: 02F03ZZ Fragmentation in Coronary Artery, One Artery, Percutaneous Approach (ICD-10-PCS; principal; 2024-07-19)
PROC: 027034Z Dilation of Coronary Artery, One Artery with Drug-eluting Intraluminal Device, Percutaneous Approach (ICD-10-PCS; 2024-07-19)
PROC: 02C03ZZ Extirpation of Matter from Coronary Artery, One Artery, Percutaneous Approach (ICD-10-PCS; 2024-07-19)
PROC: B218YZZ Fluoroscopy of Left Internal Mammary Bypass Graft using Other Contrast (ICD-10-PCS; 2024-07-19)
PROC: B211YZZ Fluoroscopy of Multiple Coronary Arteries using Other Contrast (ICD-10-PCS; 2024-07-19)
PROC: B213YZZ Fluoroscopy of Multiple Coronary Artery Bypass Grafts using Other Contrast (ICD-10-PCS; 2024-07-19)
DX: I21.4 Non-ST elevation (NSTEMI) myocardial infarction (principal); I50.43 Acute on chronic combined systolic (congestive) and diastolic (congestive) heart failure; J18.9 Pneumonia, unspecified organism; J96.01 Acute respiratory failure with hypoxia; I13.0 Hypertensive heart and chronic kidney disease with heart failure and stage 1 through stage 4 chronic kidney disease, or unspecified chronic kidney disease; N17.9 Acute kidney failure, unspecified; I16.1 Hypertensive emergency; N18.4 Chronic kidney disease, stage 4 (severe); E11.22 Type 2 diabetes mellitus with diabetic chronic kidney disease; I25.10 Atherosclerotic heart disease of native coronary artery without angina pectoris; I25.5 Ischemic cardiomyopathy; E78.5 Hyperlipidemia, unspecified; E66.3 Overweight; E88.810 Metabolic syndrome; E87.6 Hypokalemia; E83.42 Hypomagnesemia; I80.01 Phlebitis and thrombophlebitis of superficial vessels of right lower extremity; M10.9 Gout, unspecified; Z95.1 Presence of aortocoronary bypass graft; Z98.61 Coronary angioplasty status; Z90.49 Acquired absence of other specified parts of digestive tract; Z82.49 Family history of ischemic heart disease and other diseases of the circulatory system; Z79.82 Long term (current) use of aspirin; Z95.810 Presence of automatic (implantable) cardiac defibrillator; Z68.28 Body mass index [BMI] 28.0-28.9, adult; Z79.899 Other long term (current) drug therapy
CPT/HCPCS: 36415; 71045; 73501; 73620; 76881; 78582; 80048; 80053; 80307; 81001; 83735; 83880; 84443; 84484; 84550; 85025; 85379; 85610; 85730; 92941; 92972; 92973; 93005; 93454; 93970; 99152; 99291; G0378; J1956; J2250; Q9967